=== PATIENT | male | born 1985 | race Caucasian/White ===

== ENCOUNTER 2020-04-25 17:34 | Inpatient (IN) ==
[2020-04-25 17:48] VITALS: BMI 28.8
[2020-04-25] MEDS ORDERED: TYLENOL 500 MG TAB EXTRA STRENGTH PO ONE ×2 (17:52→17:55)
--- NOTE | 2020-04-25 17:52 | DR.HEADACH ---
HPI Time Seen Time Seen by Provider: 04/25/20 17:51 Primary Care Physician Primary Care Physician: JOSR HPI Comment HPI Comment: 34 yo m w/ 4-5 day hx of diffuse garcia, myalgias, fatigue/ malaise, mild SOB and productive cough. No CP, numbness/ focal weakness, rash, neck pain. + exposure to multiple family members w/ covid. Complaint/Symptoms Chief Complaint:: PT COMLAINTS OF HAVING BODY ACHES, BAD HEADACHE, COUHGING UP BLOOD. MOTHER AND GRANDFATHER HAVE HAD COVID, MOM IN HOSPITAL AND GRANDFATHER WITH COVID. Self Treatment fo Chief Complaint: PT APPEARS SLUGGISH WITH WORDS AND THOUGHT PROCESS. PT STATES I HAVE BEEN TESTED BUT CAME BACK NEGATIVE AND ALL MY FAMILY HAS CAME BACK POSITIVE. Source History Provided: Patient Mode of Arrival Mode of Arrival: Ambulatory Timing Onset of Chief Complaint: 04/22/20 Location Headache Location: Generalized Quality Quality: Aching Severity Headache Severity: Mild; denies Worst Headache of Life Context Headache Onset Circumstances: denies Trauma History of: None Prior Work Up: None PMH PMH Past Medical History: Yes Past Medical History: Anxiety, Headaches and Hypothyroidism Past Medical History Comment: SUBTEX, 7 YEARS AGO I WAS ADDICTED TO [facility] Past Surgical History: Yes Surgical History: Tonsillectomy and Other Family History History of Family Medical Conditions: Yes Family Medical History: Diabetes Mellitus Social History Type of Tobacco Use: VAPE Does any household member use tobacco: Yes (VAPE) Alcohol Use: None Do you use any recreational Drugs:: No Lives With: Spouse Lives Where: Home Infectious screening In the last 2 months have you had wt loss of >10#?: NO Have you had fever, night sweats or hemotysis?: No Have you traveled outside the country in the last 6 months?: No Isolation: Droplet ROS Review of Systems Constitutional: Chills, Malaise and Fatigue; negative Fever Eyes: No Symptoms Reported ENTM: No Symptoms Reported Respiratoy: No Symptoms Reported Cardiovascular: No Symptoms Reported Gastrointestinal/Abdominal: No Symptoms Reported Genitourinary: No Symptoms Reported Neurological: Headache; negative Numbness, Paresthesia and Weakness Musculoskeletal: No Symptoms Reported Integumentary: No Symptoms Reported Hematologic/Lymphatic: No Symptoms Reported Endocrine: No Symptoms Reported Psychiatric: No Symptoms Reported All Other Systems: Reviewed and Negative PE Vital Signs Vitals: Temperature 103 F Pulse Rate 91 Respiratory Rate 20 Blood Pressure [Left Arm] 135/76 Blood Pressure 118/71 O2 Sat by Pulse Oximetry 93 General Limitations: No Limitations General Appearance: Alert and In No Apparent Distress Head Head Exam: Normal Inspection Eyes Eye exam: Normal Appearance Eyelids: Normal Inspection: Bilateral Pupils: Regular, Round: Bilateral Sclera/Conjunctival: Normal Inspection: Bilateral ENT ENT Exam: Normal Exam External Ear Exam: Normal External Inspection TM/Canal Exam: Bilateral: Normal Nose Exam: Normal Nose Exam Mouth Exam: Normal Inspection Teeth Exam: Normal Inspection Throat Exam: Normal Inspection Neck Neck Exam: Normal Inspection and Full ROM; negative Tenderness and Meningismus Chest Chest Inspection: Normal Inspection Respiratory Respiratory Exam: Normal Lung Sounds Bilat; negative Accessory Muscle Use and Respiratory Distress Respiratory Exam: Bilateral: Rhonchi Cardiovascular Cardiovascular Exam: Regular Rate Abdominal Exam Abdominal Exam: Normal Inspection, Normal Bowel Sounds and Soft Extremities Extremities Exam: Normal Inspection Back Back Exam: Normal Inspection Neurologic Neurological Exam: Alert, Oriented X3 and CN II-XII Intact; negative Motor Sensory Deficit Psychiatric Psychiatric Exam: Normal Affect and Normal Mood Skin Skin Exam: Warm, Dry, Intact and Normal Color MDM Differential Diagnosis Differential Diagnosis Comment: pna, sepsis, covid 19, bronchitis, uti COURSE Treatment Treatment: 34 yo m w/ covid like sx's. CXR w/ multifocal infiltrate. Hypoxemia per abg requiring supplemental o2. Inflammatory markers elevated. Azithro/ Rocephin/ Decadron given. d/w Dr Herrera whom agrees to admit. ROR Labs Reviewed Laboratory Results Reviewed?: Yes Result Diagrams: 04/25/20 18:10 04/25/20 18:10 Laboratory: WBC 3.4 X10^3/uL (3.6-10.0) L 04/25/20 18:10 RBC 4.04 X10^6/uL (4.7-6.0) L 04/25/20 18:10 Hgb 12.4 g/dL (13.5-18.0) L 04/25/20 18:10 Hct 36.2 % (42.0-54.0) L 04/25/20 18:10 MCV 89.7 fL (80.0-100.0) 04/25/20 18:10 MCH 30.8 pg (27.0-34.0) 04/25/20 18:10 MCHC 34.3 g/dL (33.0-35.0) 04/25/20 18:10 RDW 13.8 % (11.6-16.5) 04/25/20 18:10 Plt Count 194 X10^3/uL (150.0-450.0) 04/25/20 18:10 MPV 7.0 fL (7.4-11.0) L 04/25/20 18:10 Neut % (Auto) 79.6 % (42.0-75.0) H 04/25/20 18:10 Lymph % (Auto) 15.2 % (21.0-51.0) L 04/25/20 18:10 [place] % (Auto) 4.6 % (0.0-13.0) 04/25/20 18:10 Eos % (Auto) 0.2 % (0.9-2.9) L 04/25/20 18:10 Baso % (Auto) 0.4 % (0.2-1.0) 04/25/20 18:10 Neut # (Auto) 2.7 x10^3/uL (2.2-4.8) 04/25/20 18:10 Lymph # (Auto) 0.5 X10^3/uL (1.3-2.9) L 04/25/20 18:10 [place] # (Auto) 0.2 x10^3/uL (0.3-0.8) L 04/25/20 18:10 Eos # (Auto) 0.0 x10^3/uL (0.0-0.2) 04/25/20 18:10 Baso # (Auto) 0.0 X10^3/uL (0.0-0.1) 04/25/20 18:10 Absolute Nucleated RBC 0.4 /100WBC 04/25/20 18:10 Sample Site Lrad 04/25/20 18:36 ABG pH 7.420 (7.35-7.45) 04/25/20 18:36 ABG pCO2 49.0 mmHg (35.0-45.0) H 04/25/20 18:36 ABG pO2 47.0 mmHg (80.0-100.0) L* 04/25/20 18:36 ABG HCO3 31.8 mmol/L (22-26) H* 04/25/20 18:36 ABG O2 Saturation 83.0 % (90-100) L* 04/25/20 18:36 ABG Base Excess 6.2 mmol/L (-2.0-2.0) H 04/25/20 18:36 Guevara Test Pos 04/25/20 18:36 A-a Gradient 41.0 mmHg 04/25/20 18:36 FiO2 21.0 04/25/20 18:36 Blood Gas Comments Pt мария well elj cdn 04/25/20 18:36 Sodium 140 mmol/L (136-145) 04/25/20 18:10 Corrected Sodium 140 mmol/L (136-145) 04/25/20 18:10 Potassium 3.8 mmol/L (3.5-5.1) 04/25/20 18:10 Chloride 102 mmol/L (98-107) 04/25/20 18:10 Carbon Dioxide 31.9 mmol/L (21-32) 04/25/20 18:10 BUN 14 mg/dL (7-18) 04/25/20 18:10 Creatinine 1.25 mg/dL (0.70-1.30) 04/25/20 18:10 Est GFR (MDRD) Af Amer > 60 (>60) 04/25/20 18:10 Est GFR (MDRD) Non-Af > 60 (>60) 04/25/20 18:10 Glucose 111 mg/dL (65-99) H 04/25/20 18:10 Lactic Acid 1.3 mmol/L (0.4-2.0) 04/25/20 18:10 Calcium 8.7 mg/dL (8.5-10.1) 04/25/20 18:10 Corrected Calcium TNP 04/25/20 18:10 Ferritin 1893 ng/mL (26-388) H 04/25/20 18:10 Total Bilirubin 0.30 mg/dL (0.2-1.0) 04/25/20 18:10 AST 49 Units/L (15-37) H 04/25/20 18:10 ALT 48 Units/L (12-78) 04/25/20 18:10 Alkaline Phosphatase 79 Units/L (46-116) 04/25/20 18:10 Lactate Dehydrogenase 288 Units/L (85-227) H 04/25/20 18:10 C-Reactive Protein 107.50 mg/L (0-3.0) H 04/25/20 18:10 Total Protein 8.0 g/dL (6.4-8.2) 04/25/20 18:10 Albumin 3.5 g/dL (3.4-5.0) 04/25/20 18:10 Globulin 4.5 g/dL (2.5-4.5) 04/25/20 18:10 Albumin/Globulin Ratio 0.8 Ratio (1.1-2.1) L 04/25/20 18:10 EKG Rate: 90 [place]: Normal Rhythm: NSR Block: None ST: Normal Opioid Opioid Risk Tool Age ([place] box if 16-45): Yes History of Preadolescent Sexual Abuse: No Total: 1 Total Score Risk Category: Low Risk Copyright: Severo GALLO predicting aberrant behaviors Diagnosis Discharge Problem: Community acquired bacterial pneumonia, COVID-19, Acute hypoxemic respiratory failure due to COVID-19
[2020-04-25 18:17] LABS: BASOPHILS % (AUTO) 0.4 % (0.2-1.0); EOSINOPHILS % (AUTO) 0.2 % (0.9-2.9); HEMATOCRIT 36.2 % (42.0-54.0); HEMOGLOBIN 12.4 g/dL (13.5-18.0); LYMPHOCYTES # (AUTO) 0.5 X10^3/uL (1.3-2.9); LYMPHOCYTES % (AUTO) 15.2 % (21.0-51.0); MEAN CORPUSCULAR HEMOGLOBIN 30.8 pg (27.0-34.0); MEAN CORPUSCULAR HGB CONC 34.3 g/dL (33.0-35.0); MEAN CORPUSCULAR VOLUME 89.7 fL (80.0-100.0); MONOCYTES # (AUTO) 0.2 x10^3/uL (0.3-0.8); MONOCYTES % (AUTO) 4.6 % (0.0-13.0); NEUTROPHILS # (AUTO) 2.7 x10^3/uL (2.2-4.8); NEUTROPHILS % (AUTO) 79.6 % (42.0-75.0); PLATELET COUNT 194 X10^3/uL (150.0-450.0); RED BLOOD COUNT 4.04 X10^6/uL (4.7-6.0); RED CELL DISTRIBUTION WIDTH 13.8 % (11.6-16.5); WHITE BLOOD COUNT 3.4 X10^3/uL (3.6-10.0)
[2020-04-25 18:30] LABS: ALANINE AMINOTRANSFERASE 48 Units/L (12-78); ALBUMIN 3.5 g/dL (3.4-5.0); ALKALINE PHOSPHATASE 79 Units/L (46-116); ASPARTATE AMINO TRANSFERASE 49 Units/L (15-37); BLOOD UREA NITROGEN 14 mg/dL (7-18); CALCIUM 8.7 mg/dL (8.5-10.1); CARBON DIOXIDE 31.9 mmol/L (21-32); CHLORIDE 102 mmol/L (98-107); COR NA(FOR HYPERGLY) 140 mmol/L (136-145); CREATININE 1.25 mg/dL (0.70-1.30); LACTATE DEHYDROGENASE 288 Units/L (85-227); SODIUM 140 mmol/L (136-145); eGFR NON BLACK RACES > 60 (>60)
--- NOTE | 2020-04-25 18:30 | RAD ---
CHEST, 1 VIEWHISTORY: sob, coughStudy: Single view of the chest.Comparison:NoneFindings:The cardiomediastinal silhouette is normal. Bilateral interstitial prominence streaky left lung opacities. No focal consolidations, pleural effusions or pneumothorax. Osseous structures demonstrate no acute abnormality.IMPRESSION:1. Bilateral interstitial prominence and early alveolar infiltrates. Findings may represent atypical infection, including viral etiologies.Electronically signed by: EDWAR DOLL (Apr 25, 2020 18:30:41)
[2020-04-25 18:35] LABS: LACTIC ACID 1.3 mmol/L (0.4-2.0)
[2020-04-25 18:48] LABS: ABG BASE EXCESS 6.2 mmol/L (-2.0-2.0)
[2020-04-25 18:49] LABS: ABG HCO3 31.8 mmol/L (22-26)
[2020-04-25 18:50] LABS: ABG ALLEN TEST POS
[2020-04-25] MEDS ORDERED: ROCEPHIN VIAL 1 GRAM 1 G in NS 100 ML IV + SPIKE MINIBAG* 100 ML IV SCH (19:42)
[2020-04-25] MEDS ORDERED: DECADRON INJ IV SCH (20:00)
[2020-04-25] MEDS ORDERED: ROCEPHIN VIAL 1 GRAM ONE (21:38)
[2020-04-25] MEDS ORDERED: NS 50 ML IV + SPIKE MINIBAG* 50 ML IV ONE (21:38)
[2020-04-25] MEDS ORDERED: NS 250 ML IV 250 ML IV ONE (21:41)
[2020-04-25] MEDS ORDERED: TYLENOL 325 MG TAB PO PRN (23:20)
[2020-04-25] MEDS ORDERED: REMDESIVIR (INVESTIGATIONAL DRUG GS-5734) 200 MG in NS 250 ML IV 250 ML IV SCH (23:45)
[2020-04-26] MEDS: ZITHROMAX INJ 500 MG VIAL 500 MG in D5W 250 ML IV 250 ML IV SCH (01:24)
[2020-04-26] MEDS: KLONOPIN TAB 0.5 MG PO SCH ×3 (01:26→20:28)
[2020-04-26] MEDS: SOLU-Medrol 125 MG VIAL IVP SCH ×4 (01:27→21:17)
[2020-04-26] MEDS: SUBOXONE TAB SL SCH ×5 (01:28→21:17)
[2020-04-26] MEDS: ASCORBIC ACID INJ MULTI-DOSE VIAL 1,500 MG in NS 100 ML IV 100 ML IV SCH ×4 (04:33→20:53)
[2020-04-26 05:39] LABS: BASOPHILS % (AUTO) 0.2 % (0.2-1.0); EOSINOPHILS % (AUTO) 0.1 % (0.9-2.9); HEMATOCRIT 33.3 % (42.0-54.0); HEMOGLOBIN 11.7 g/dL (13.5-18.0); LYMPHOCYTES # (AUTO) 0.9 X10^3/uL (1.3-2.9); LYMPHOCYTES % (AUTO) 22.3 % (21.0-51.0); MEAN CORPUSCULAR HEMOGLOBIN 31.3 pg (27.0-34.0); MEAN CORPUSCULAR VOLUME 89.4 fL (80.0-100.0); MEAN PLATELET VOLUME 7.2 fL (7.4-11.0); MONOCYTES # (AUTO) 0.1 x10^3/uL (0.3-0.8); MONOCYTES % (AUTO) 3.3 % (0.0-13.0); NEUTROPHILS # (AUTO) 3.1 x10^3/uL (2.2-4.8); NEUTROPHILS % (AUTO) 74.1 % (42.0-75.0); PLATELET COUNT 201 X10^3/uL (150.0-450.0); RED BLOOD COUNT 3.72 X10^6/uL (4.7-6.0); RED CELL DISTRIBUTION WIDTH 13.5 % (11.6-16.5); WHITE BLOOD COUNT 4.2 X10^3/uL (3.6-10.0)
[2020-04-26 05:58] LABS: ALANINE AMINOTRANSFERASE 41 Units/L (12-78); ALBUMIN 3.1 g/dL (3.4-5.0); ALKALINE PHOSPHATASE 81 Units/L (46-116); ASPARTATE AMINO TRANSFERASE 43 Units/L (15-37); BLOOD UREA NITROGEN 13 mg/dL (7-18); CALCIUM 8.4 mg/dL (8.5-10.1); CARBON DIOXIDE 31.4 mmol/L (21-32); CHLORIDE 102 mmol/L (98-107); COR CA(FOR HYPOALB) 9.1 mg/dL (8.5-10.1); CREATININE 1.04 mg/dL (0.70-1.30); SODIUM 139 mmol/L (136-145); TOTAL PROTEIN 7.4 g/dL (6.4-8.2); eGFR NON BLACK RACES > 60 (>60)
[2020-04-26] MEDS: TRICOR TAB 160 MG PO SCH (08:26)
[2020-04-26] MEDS: ZINC SULFATE PO SCH ×2 (08:27→20:30)
[2020-04-26] MEDS: LOVENOX INJ 30 MG SYR SC SCH ×2 (08:27→20:30)
[2020-04-26] MEDS ORDERED: VITAMIN A PO SCH (09:00)
[2020-04-26] MEDS ORDERED: VITAMIN D (1.25MG) PO SCH (09:00)
[2020-04-26 12:56] LABS: ABG BASE EXCESS 5.1 mmol/L (-2.0-2.0)
[2020-04-26 12:57] LABS: ABG ALLEN TEST POS
[2020-04-26] MEDS: PLAQUENIL PO SCH ×2 (14:23→20:29)
[2020-04-26] MEDS ORDERED: MICRO K EXTEN CAP 10 MEQ PO PRN (19:17)
[2020-04-26] MEDS ORDERED: POTASSIUM CHL 60 MEQ/NS 0.45% 500 ML IV PRN (19:17)
[2020-04-26] MEDS ORDERED: K-RIDER 10 MEQ/NS 100 ML 10 MEQ/100 ML BAG IV PRN (19:17)
[2020-04-26] MEDS ORDERED: KLOR-CON PO PRN (19:17)
[2020-04-26] MEDS ORDERED: MAGNESIUM SULFATE 1 GRAM/100 mL PREMIX 1 GM/100 ML BAG IV PRN (19:17)
[2020-04-26] MEDS ORDERED: POTASSIUM CHL 40 MEQ/NS 0.45% 500 ML IV PRN (19:17)
[2020-04-26] MEDS ORDERED: POTASSIUM CHLORIDE LIQ 20 MEQ UDC PO PRN (19:17)
[2020-04-26] MEDS ORDERED: BENADRYL INJ 50 MG VIAL IVP PRN (19:20)
[2020-04-26] MEDS ORDERED: ROCEPHIN VIAL 1 GRAM 1 G in NS 100 ML IV + SPIKE MINIBAG* 100 ML IV SCH (20:00)
[2020-04-26] MEDS: K-DUR TAB 20 MEQ PO PRN (20:36)
[2020-04-27] MEDS: ZITHROMAX INJ 500 MG VIAL 500 MG in D5W 250 ML IV 250 ML IV SCH (00:20)
[2020-04-27] MEDS: REMDESIVIR (INVESTIGATIONAL DRUG GS-5734) 100 MG in NS 250 ML IV 250 ML IV SCH ×2 (01:15→22:05)
[2020-04-27] MEDS: ASCORBIC ACID INJ MULTI-DOSE VIAL 1,500 MG in NS 100 ML IV 100 ML IV SCH ×2 (03:30→09:11)
[2020-04-27 05:24] LABS: ABG ALLEN TEST POS; ABG BASE EXCESS 3.6 mmol/L (-2.0-2.0); ABG HCO3 29.1 mmol/L (22-26)
[2020-04-27] MEDS: SUBOXONE TAB SL SCH ×3 (05:35→21:14)
[2020-04-27] MEDS: SOLU-Medrol 125 MG VIAL IVP SCH ×3 (05:37→21:14)
[2020-04-27 05:56] LABS: BASOPHILS % (AUTO) 0.1 % (0.2-1.0); HEMATOCRIT 36.6 % (42.0-54.0); HEMOGLOBIN 12.6 g/dL (13.5-18.0); LYMPHOCYTES # (AUTO) 0.6 X10^3/uL (1.3-2.9); LYMPHOCYTES % (AUTO) 11.4 % (21.0-51.0); MEAN CORPUSCULAR HEMOGLOBIN 31.1 pg (27.0-34.0); MEAN CORPUSCULAR HGB CONC 34.4 g/dL (33.0-35.0); MEAN CORPUSCULAR VOLUME 90.4 fL (80.0-100.0); MEAN PLATELET VOLUME 7.2 fL (7.4-11.0); MONOCYTES # (AUTO) 0.1 x10^3/uL (0.3-0.8); NEUTROPHILS # (AUTO) 4.3 x10^3/uL (2.2-4.8); NEUTROPHILS % (AUTO) 85.5 % (42.0-75.0); PLATELET COUNT 270 X10^3/uL (150.0-450.0); RED BLOOD COUNT 4.05 X10^6/uL (4.7-6.0); RED CELL DISTRIBUTION WIDTH 13.4 % (11.6-16.5)
[2020-04-27 06:00] LABS: ALANINE AMINOTRANSFERASE 43 Units/L (12-78); ALBUMIN 3.2 g/dL (3.4-5.0); ALKALINE PHOSPHATASE 85 Units/L (46-116); ASPARTATE AMINO TRANSFERASE 41 Units/L (15-37); BLOOD UREA NITROGEN 16 mg/dL (7-18); CALCIUM 8.8 mg/dL (8.5-10.1); CARBON DIOXIDE 29.9 mmol/L (21-32); CHLORIDE 102 mmol/L (98-107); COR CA(FOR HYPOALB) 9.4 mg/dL (8.5-10.1); COR NA(FOR HYPERGLY) 141 mmol/L (136-145); SODIUM 140 mmol/L (136-145); TOTAL PROTEIN 8.1 g/dL (6.4-8.2); eGFR NON BLACK RACES > 60 (>60)
[2020-04-27] MEDS ORDERED: VITAMIN A PO SCH (09:00)
[2020-04-27] MEDS: KLONOPIN TAB 0.5 MG PO SCH ×2 (09:11→21:13)
[2020-04-27] MEDS: LOVENOX INJ 30 MG SYR SC SCH ×2 (09:12→21:13)
[2020-04-27] MEDS: PLAQUENIL PO SCH (09:12)
[2020-04-27] MEDS: VITAMIN D3 125 mcg (5,000 UNITS) PO SCH (09:13)
[2020-04-27] MEDS: TRICOR TAB 160 MG PO SCH (09:13)
[2020-04-27] MEDS: ZINC SULFATE PO SCH ×2 (09:14→21:14)
[2020-04-27] MEDS ORDERED: NS 250 ML IV 250 ML IV ONE (10:49)
[2020-04-27] MEDS: PULMICORT NEB TX 0.5 MG NEB SCH ×2 (11:22→21:35)
[2020-04-27] MEDS: MUCOMYST (RESPIRATORY USE ONLY) NEB SCH ×2 (11:22→21:35)
[2020-04-27] MEDS: DUONEB 0.5 MG/3 MG (3 mL) NEB SCH ×3 (11:22→21:35)
[2020-04-27] MEDS: LEVAQUIN PREMIX IV 750 MG 750 MG/150 ML BAG IV SCH (12:02)
[2020-04-27] MEDS ORDERED: TESSALON PERLES PO ONE (12:32)
[2020-04-27] MEDS: TESSALON PERLES PO SCH ×2 (13:39→21:15)
[2020-04-28] MEDS ORDERED: NS 100 ML IV 100 ML IV ONE (02:47)
[2020-04-28 05:19] LABS: ABG BASE EXCESS 6.7 mmol/L (-2.0-2.0); ABG HCO3 31.9 mmol/L (22-26)
[2020-04-28 05:20] LABS: ABG ALLEN TEST POS
--- NOTE | 2020-04-28 05:35 | RAD ---
HISTORYSOBSTUDYCHEST, 1 [id number]/26/2020FINDINGSThe trachea is midline. The cardiac silhouette is stable. Patchy bilateral interstitial and airspace opacities, slightly progressed since prior exam. Mild left basilar atelectasis versus infiltrates. No pneumothorax.. The bony thorax is unremarkable.IMPRESSIONMore pronounced patchy bilateral interstitial/airspace opacities.Electronically signed by: Lana Luis (Apr 28, 2020 05:35:42)
[2020-04-28 05:42] LABS: BASOPHILS % (AUTO) 0.1 % (0.2-1.0); HEMATOCRIT 33.1 % (42.0-54.0); HEMOGLOBIN 11.5 g/dL (13.5-18.0); LYMPHOCYTES # (AUTO) 0.8 X10^3/uL (1.3-2.9); LYMPHOCYTES % (AUTO) 8.1 % (21.0-51.0); MEAN CORPUSCULAR HGB CONC 34.8 g/dL (33.0-35.0); MEAN CORPUSCULAR VOLUME 89.1 fL (80.0-100.0); MEAN PLATELET VOLUME 6.6 fL (7.4-11.0); MONOCYTES # (AUTO) 0.3 x10^3/uL (0.3-0.8); MONOCYTES % (AUTO) 3.2 % (0.0-13.0); NEUTROPHILS # (AUTO) 8.4 x10^3/uL (2.2-4.8); NEUTROPHILS % (AUTO) 88.6 % (42.0-75.0); PLATELET COUNT 323 X10^3/uL (150.0-450.0); RED BLOOD COUNT 3.72 X10^6/uL (4.7-6.0); RED CELL DISTRIBUTION WIDTH 13.8 % (11.6-16.5); WHITE BLOOD COUNT 9.5 X10^3/uL (3.6-10.0)
[2020-04-28 05:53] LABS: ALANINE AMINOTRANSFERASE 32 Units/L (12-78); ALBUMIN 2.9 g/dL (3.4-5.0); ALKALINE PHOSPHATASE 73 Units/L (46-116); ASPARTATE AMINO TRANSFERASE 27 Units/L (15-37); BLOOD UREA NITROGEN 19 mg/dL (7-18); CALCIUM 8.8 mg/dL (8.5-10.1); CHLORIDE 102 mmol/L (98-107); COR CA(FOR HYPOALB) 9.7 mg/dL (8.5-10.1); COR NA(FOR HYPERGLY) 143 mmol/L (136-145); CREATININE 1.27 mg/dL (0.70-1.30); SODIUM 141 mmol/L (136-145); TOTAL PROTEIN 7.4 g/dL (6.4-8.2); eGFR NON BLACK RACES > 60 (>60)
[2020-04-28] MEDS: SOLU-Medrol 125 MG VIAL IVP SCH ×3 (05:58→21:43)
[2020-04-28] MEDS: SUBOXONE TAB SL SCH ×3 (06:20→21:43)
[2020-04-28] MEDS: TESSALON PERLES PO SCH ×3 (06:20→21:43)
--- NOTE | 2020-04-28 08:40 | PCM.PROG ---
Progress Note - Progress Note for Day of Date of Exam: 04/27/20 - Subjective Subjective: WAS ADMITTED ON 04/25 FOR TREATMENT OF PNEUMONIA DUE TO COVID-19, HYPOXIA, AND RESPIRATORY FAILURE. HIS PO2 ON ADMISSION WAS 47. HE HAS A HISTORY OF ANXIETY AND OPIOD DEPENDENCE. HIS SUBOXONE WAS RESUMED. HE HAS BEEN OXYGEN DEPENDENT TO MAINTAIN OXYGEN SATURATIONS. HE IS CURRENTLY ON OXYGEN VIA NASAL CANNULA AT 3L/MIN. HE CONTINUES WITH COMPLAINTS OF SHORTNESS OF BREATH, COUGH, AND WEAKNESS THIS MORNING. COUGH IS NON-PRODUCTIVE. HE IS NOTED WITH SCATTERED WHEEZING TO AUSCULTATION. HIS VITALS THIS MORNING ARE: 98.4-68-16-87%NC-97/55. LABS WERE OBTAINED. ABNORMAL LAB VALUES INCLUDE THE FOLLOWING: RBC 3.72, HGB 11.5, HCT 33.1, BUN 19, GLUCOSE 180, FERRITIN 2114, CRP 34.30, ALBUMIN 2.9. ABG REVEALED: PH 7.440, PC02 47, P02 60, HC03 31.9, 02 SAT 92, BASE EXCESS 6.7, FI02 32. HE IS CURRENTLY RECEIVING ROCEPHIN 1G IV DAILY, AZITHROMYCIN 500MG IV DAILY, REMDESIVIR 100MG IV DAILY, SOLU-MEDROL 80MG IV Q8H, LOVENOX 30MG SC BID, TRICOR 160MG PO DAILY, ZINC 220MG PO DAILY, KLONOPIN 0.5MG PO BID, SUBOXONE SL TID, AND THE POTASSIUM AND MAGNESIUM PROTOCOLS. TODAY, WE WILL DISCONTINUE THE ROCEPHIN AND AZITHROMYCIN. WE WILL START LEVAQUIN 750MG IV DAILY, DUONEBS QID, PULMICORT NEBS BID, MUCOMYST IN NEBS BID, AND TESSALON PERLES 200MG PO TID. OTHERWISE, WE PLAN TO FOLLOW UP WITH AM LABS, CHEST XRAY, ABG, AND CONTINUE TO MONITOR. - Past Medical Family Social History Past Med/Fam/Surg Hx: No changes since H&P Allergies: Allergies amoxicillin Adverse Reaction (Verified 04/25/20 17:48) clavulanic acid [From Augmentin] Adverse Reaction (Verified 04/25/20 17:48) - Review of Systems ROS: No change since H&P - Vital Signs and I&O's Vital Signs: Temperature 98.3 F Pulse Rate [Left Brachial] 79 Pulse Rate 88 Respiratory Rate 20 Blood Pressure [Left Arm] 115/74 Blood Pressure 119/58 O2 Sat by Pulse Oximetry 83 Intake and Output: Intake & Output 04/25/20 04/26/20 04/27/20 04/28/20 11:59 11:59 11:59 11:59 Intake Total 900 / 900 3315 / 3315 2820 / 2820 Output Total 450 / 450 Balance 450 / 450 3315 / 3315 2820 / 2820 - Physical Exam Oriented: Normal Eyes: Normal Ear: Normal Nose: Normal Throat: Normal Respiratory: Generalized, Diminished, Wheezes Cardiovascular: Normal : Normal Auscultation: Bowel Sounds: Normal Palpation: Normal Tenderness: Normal Skin: Normal Musculoskeletal: Normal Psychiatric: Normal Mood Description: Calm Affect: Normal Speech Pattern: Clear, Appropriate - Laboratory and Diagnostics Result Diagrams: 04/28/20 04:23 04/28/20 04:23 Labs: Laboratory WBC 9.5 X10^3/uL (3.6-10.0) 04/28/20 04:23 RBC 3.72 X10^6/uL (4.7-6.0) L 04/28/20 04:23 Hgb 11.5 g/dL (13.5-18.0) L 04/28/20 04:23 Hct 33.1 % (42.0-54.0) L 04/28/20 04:23 MCV 89.1 fL (80.0-100.0) 04/28/20 04:23 MCH 31.0 pg (27.0-34.0) 04/28/20 04:23 MCHC 34.8 g/dL (33.0-35.0) 04/28/20 04:23 RDW 13.8 % (11.6-16.5) 04/28/20 04:23 Plt Count 323 X10^3/uL (150.0-450.0) 04/28/20 04:23 MPV 6.6 fL (7.4-11.0) L 04/28/20 04:23 Neut % (Auto) 88.6 % (42.0-75.0) H 04/28/20 04:23 Lymph % (Auto) 8.1 % (21.0-51.0) L 04/28/20 04:23 [place] % (Auto) 3.2 % (0.0-13.0) 04/28/20 04:23 Eos % (Auto) 0.0 % (0.9-2.9) L 04/28/20 04:23 Baso % (Auto) 0.1 % (0.2-1.0) L 04/28/20 04:23 Neut # (Auto) 8.4 x10^3/uL (2.2-4.8) H 04/28/20 04:23 Lymph # (Auto) 0.8 X10^3/uL (1.3-2.9) L 04/28/20 04:23 [place] # (Auto) 0.3 x10^3/uL (0.3-0.8) 04/28/20 04:23 Eos # (Auto) 0.0 x10^3/uL (0.0-0.2) 04/28/20 04:23 Baso # (Auto) 0.0 X10^3/uL (0.0-0.1) 04/28/20 04:23 Absolute Nucleated RBC 0.0 /100WBC 04/28/20 04:23 Sample Site Rr 04/28/20 05:00 ABG pH 7.440 (7.35-7.45) 04/28/20 05:00 ABG pCO2 47.0 mmHg (35.0-45.0) H 04/28/20 05:00 ABG pO2 60.0 mmHg (80.0-100.0) L 04/28/20 05:00 ABG HCO3 31.9 mmol/L (22-26) H* 04/28/20 05:00 ABG O2 Saturation 92.0 % (90-100) 04/28/20 05:00 ABG Base Excess 6.7 mmol/L (-2.0-2.0) H 04/28/20 05:00 Guevara Test Pos 04/28/20 05:00 A-a Gradient 109.0 mmHg 04/28/20 05:00 FiO2 32.0 04/28/20 05:00 Blood Gas Comments Luz well sw 04/28/20 05:00 Sodium 141 mmol/L (136-145) 04/28/20 04:23 Corrected Sodium 143 mmol/L (136-145) 04/28/20 04:23 Potassium 3.8 mmol/L (3.5-5.1) 04/28/20 04:23 Chloride 102 mmol/L (98-107) 04/28/20 04:23 Carbon Dioxide 29.0 mmol/L (21-32) 04/28/20 04:23 BUN 19 mg/dL (7-18) H 04/28/20 04:23 Creatinine 1.27 mg/dL (0.70-1.30) 04/28/20 04:23 Est GFR (MDRD) Af Amer > 60 (>60) 04/28/20 04:23 Est GFR (MDRD) Non-Af > 60 (>60) 04/28/20 04:23 Glucose 180 mg/dL (65-99) H 04/28/20 04:23 Lactic Acid 1.3 mmol/L (0.4-2.0) 04/25/20 18:10 Calcium 8.8 mg/dL (8.5-10.1) 04/28/20 04:23 Corrected Calcium 9.7 mg/dL (8.5-10.1) 04/28/20 04:23 Magnesium 2.4 mg/dL (1.7-2.9) 04/26/20 04:30 Ferritin 2114 ng/mL (26-388) H 04/28/20 04:23 Total Bilirubin 0.20 mg/dL (0.2-1.0) 04/28/20 04:23 AST 27 Units/L (15-37) 04/28/20 04:23 ALT 32 Units/L (12-78) 04/28/20 04:23 Alkaline Phosphatase 73 Units/L (46-116) 04/28/20 04:23 Lactate Dehydrogenase 288 Units/L (85-227) H 04/25/20 18:10 C-Reactive Protein 34.30 mg/L (0-3.0) H 04/28/20 04:23 Total Protein 7.4 g/dL (6.4-8.2) 04/28/20 04:23 Albumin 2.9 g/dL (3.4-5.0) L 04/28/20 04:23 Globulin 4.5 g/dL (2.5-4.5) 04/28/20 04:23 Albumin/Globulin Ratio 0.6 Ratio (1.1-2.1) L 04/28/20 04:23 SARS-CoV-2 (PCR) Positive (NEGATIVE) A 04/25/20 20:39 Blood Type A POSITIVE 04/26/20 12:10 - Plan (1) Pneumonia due to COVID-19 virus Status: Acute Plan: LEVAQUIN 750MG IV DAILY, DUONEBS QID, PULMICORT NEBS BID, MUCOMYST IN NEBS BID, AND TESSALON PERLES 200MG PO TID, REMDESIVIR 100MG IV DAILY, SOLU-MEDROL 80MG IV Q8H, LOVENOX 30MG SC BID, TRICOR 160MG PO DAILY, ZINC 220MG PO DAILY, KLONOPIN 0.5MG PO BID, SUBOXONE SL TID, AND THE POTASSIUM AND MAGNESIUM PROTOCOLS. SUPPLEMENTAL OXYGEN (2) Acute hypoxemic respiratory failure due to COVID-19 Status: Acute
[2020-04-28] MEDS: DUONEB 0.5 MG/3 MG (3 mL) NEB SCH ×4 (09:05→20:25)
[2020-04-28] MEDS: PULMICORT NEB TX 0.5 MG NEB SCH ×2 (09:05→20:25)
[2020-04-28] MEDS: MUCOMYST (RESPIRATORY USE ONLY) NEB SCH ×2 (09:05→20:25)
[2020-04-28] MEDS: LOVENOX INJ 30 MG SYR SC SCH ×2 (09:07→21:42)
[2020-04-28] MEDS: KLONOPIN TAB 0.5 MG PO SCH ×2 (09:07→21:42)
[2020-04-28] MEDS: LEVAQUIN PREMIX IV 750 MG 750 MG/150 ML BAG IV SCH (09:07)
[2020-04-28] MEDS: VITAMIN D3 125 mcg (5,000 UNITS) PO SCH (09:08)
[2020-04-28] MEDS: TRICOR TAB 160 MG PO SCH (09:08)
[2020-04-28] MEDS: ZINC SULFATE PO SCH ×2 (09:09→21:42)
[2020-04-28] MEDS: K-DUR TAB 20 MEQ PO PRN (09:09)
--- NOTE | 2020-04-28 11:03 | PCM.PROG ---
Progress Note - Progress Note for Day of Date of Exam: 04/28/20 - Subjective Subjective: IS BEING TREATED FOR PNEUMONIA DUE TO COVID-19, HYPOXIA, AND RESPIRATORY FAILURE. HE HAS BEEN OXYGEN DEPENDENT TO MAINTAIN OXYGEN SATURATIONS. SATURATIONS CONTINUE TO REMAIN IN THE 80s AND LOW 90s ON NASAL CANNULA. HE IS CURRENTLY ON OXYGEN VIA NASAL CANNULA AT 2L/MIN. HE CONTINUES WITH COMPLAINTS OF SHORTNESS OF BREATH, COUGH, AND WEAKNESS THIS MORNING. COUGH IS NON-PRODUCTIVE. HE DENIES SIGNIFICANT IMPROVEMENT IN SYMPTOMS SINCE ONE DAY PRIOR. ON EXAMINATION, HE IS NOTED WITH SCATTERED WHEEZING TO AUSCULTATION. HIS VITALS THIS MORNING ARE: 98.3-79-20-83%NC-115/74. LABS WERE OBTAINED. ABNORMAL LAB VALUES INCLUDE THE FOLLOWING: RBC 3.72, HGB 11.5, HCT 33.1, BUN 19, GLUCOSE 180, FERRITIN 2114, CRP 34.30, ALBUMIN 2.9. ABG REVEALED: PH 7.440, PC02 47, P02 60, HC03 31.9, 02 SAT 92, FI02 32. HE IS CURRENTLY RECEIVING REMDESIVIR 100MG IV DAILY, SOLU-MEDROL 80MG IV Q8H, LEVAQUIN 750MG IV DAILY, DUONEBS QID, PULMICORT NEBS BID, MUCOMYST IN NEBS BID, TESSALON PERLES 200MG PO TID, LOVENOX 30MG SC BID, TRICOR 160MG PO DAILY, ZINC 220MG PO DAILY, KLONOPIN 0.5MG PO BID, SUBOXONE SL TID, AND THE POTASSIUM AND MAGNESIUM PROTOCOLS. HE HAS RECEIVED ONE UNIT OF CONVALESCENT PLASMA AND WILL RECEIVE ANOTHER WHEN IT IS AVAILABLE. WE WILL CONTINUE WITH CURRENT PLAN OF CARE TODAY. OTHERWISE, WE PLAN TO FOLLOW UP WITH AM LABS, CHEST XRAY, ABG, AND CONTINUE TO MONITOR. - Past Medical Family Social History Past Med/Fam/Surg Hx: No changes since H&P Allergies: Allergies amoxicillin Adverse Reaction (Verified 04/25/20 17:48) clavulanic acid [From Augmentin] Adverse Reaction (Verified 04/25/20 17:48) - Review of Systems ROS: No change since H&P - Vital Signs and I&O's Vital Signs: Temperature 98.3 F Pulse Rate [Left Brachial] 79 Pulse Rate 88 Respiratory Rate 20 Blood Pressure [Left Arm] 115/74 Blood Pressure 119/58 O2 Sat by Pulse Oximetry 83 Intake and Output: Intake & Output 04/25/20 04/26/20 04/27/20 04/28/20 11:59 11:59 11:59 11:59 Intake Total 900 / 900 3315 / 3315 2820 / 2820 Output Total 450 / 450 Balance 450 / 450 3315 / 3315 2820 / 2820 - Physical Exam Oriented: Normal Eyes: Normal Ear: Normal Nose: Normal Throat: Normal Respiratory: Generalized, Diminished, Wheezes Cardiovascular: Normal : Normal Auscultation: Bowel Sounds: Normal Palpation: Normal Tenderness: Normal Skin: Normal Musculoskeletal: Normal Psychiatric: Normal Mood Description: Calm Affect: Normal Speech Pattern: Clear, Appropriate - Laboratory and Diagnostics Result Diagrams: 04/28/20 04:23 04/28/20 04:23 Labs: Laboratory WBC 9.5 X10^3/uL (3.6-10.0) 04/28/20 04:23 RBC 3.72 X10^6/uL (4.7-6.0) L 04/28/20 04:23 Hgb 11.5 g/dL (13.5-18.0) L 04/28/20 04:23 Hct 33.1 % (42.0-54.0) L 04/28/20 04:23 MCV 89.1 fL (80.0-100.0) 04/28/20 04:23 MCH 31.0 pg (27.0-34.0) 04/28/20 04:23 MCHC 34.8 g/dL (33.0-35.0) 04/28/20 04:23 RDW 13.8 % (11.6-16.5) 04/28/20 04:23 Plt Count 323 X10^3/uL (150.0-450.0) 04/28/20 04:23 MPV 6.6 fL (7.4-11.0) L 04/28/20 04:23 Neut % (Auto) 88.6 % (42.0-75.0) H 04/28/20 04:23 Lymph % (Auto) 8.1 % (21.0-51.0) L 04/28/20 04:23 [place] % (Auto) 3.2 % (0.0-13.0) 04/28/20 04:23 Eos % (Auto) 0.0 % (0.9-2.9) L 04/28/20 04:23 Baso % (Auto) 0.1 % (0.2-1.0) L 04/28/20 04:23 Neut # (Auto) 8.4 x10^3/uL (2.2-4.8) H 04/28/20 04:23 Lymph # (Auto) 0.8 X10^3/uL (1.3-2.9) L 04/28/20 04:23 [place] # (Auto) 0.3 x10^3/uL (0.3-0.8) 04/28/20 04:23 Eos # (Auto) 0.0 x10^3/uL (0.0-0.2) 04/28/20 04:23 Baso # (Auto) 0.0 X10^3/uL (0.0-0.1) 04/28/20 04:23 Absolute Nucleated RBC 0.0 /100WBC 04/28/20 04:23 Sample Site Rr 04/28/20 05:00 ABG pH 7.440 (7.35-7.45) 04/28/20 05:00 ABG pCO2 47.0 mmHg (35.0-45.0) H 04/28/20 05:00 ABG pO2 60.0 mmHg (80.0-100.0) L 04/28/20 05:00 ABG HCO3 31.9 mmol/L (22-26) H* 04/28/20 05:00 ABG O2 Saturation 92.0 % (90-100) 04/28/20 05:00 ABG Base Excess 6.7 mmol/L (-2.0-2.0) H 04/28/20 05:00 Guevara Test Pos 04/28/20 05:00 A-a Gradient 109.0 mmHg 04/28/20 05:00 FiO2 32.0 04/28/20 05:00 Blood Gas Comments Luz well 04/28/20 05:00 Sodium 141 mmol/L (136-145) 04/28/20 04:23 Corrected Sodium 143 mmol/L (136-145) 04/28/20 04:23 Potassium 3.8 mmol/L (3.5-5.1) 04/28/20 04:23 Chloride 102 mmol/L (98-107) 04/28/20 04:23 Carbon Dioxide 29.0 mmol/L (21-32) 04/28/20 04:23 BUN 19 mg/dL (7-18) H 04/28/20 04:23 Creatinine 1.27 mg/dL (0.70-1.30) 04/28/20 04:23 Est GFR (MDRD) Af Amer > 60 (>60) 04/28/20 04:23 Est GFR (MDRD) Non-Af > 60 (>60) 04/28/20 04:23 Glucose 180 mg/dL (65-99) H 04/28/20 04:23 Lactic Acid 1.3 mmol/L (0.4-2.0) 04/25/20 18:10 Calcium 8.8 mg/dL (8.5-10.1) 04/28/20 04:23 Corrected Calcium 9.7 mg/dL (8.5-10.1) 04/28/20 04:23 Magnesium 2.4 mg/dL (1.7-2.9) 04/26/20 04:30 Ferritin 2114 ng/mL (26-388) H 04/28/20 04:23 Total Bilirubin 0.20 mg/dL (0.2-1.0) 04/28/20 04:23 AST 27 Units/L (15-37) 04/28/20 04:23 ALT 32 Units/L (12-78) 04/28/20 04:23 Alkaline Phosphatase 73 Units/L (46-116) 04/28/20 04:23 Lactate Dehydrogenase 288 Units/L (85-227) H 04/25/20 18:10 C-Reactive Protein 34.30 mg/L (0-3.0) H 04/28/20 04:23 Total Protein 7.4 g/dL (6.4-8.2) 04/28/20 04:23 Albumin 2.9 g/dL (3.4-5.0) L 04/28/20 04:23 Globulin 4.5 g/dL (2.5-4.5) 04/28/20 04:23 Albumin/Globulin Ratio 0.6 Ratio (1.1-2.1) L 04/28/20 04:23 SARS-CoV-2 (PCR) Positive (NEGATIVE) A 04/25/20 20:39 Blood Type A POSITIVE 04/26/20 12:10 - Plan (1) Pneumonia due to COVID-19 virus Status: Acute Plan: LEVAQUIN 750MG IV DAILY, DUONEBS QID, PULMICORT NEBS BID, MUCOMYST IN NEBS BID, AND TESSALON PERLES 200MG PO TID, REMDESIVIR 100MG IV DAILY, SOLU-MEDROL 80MG IV Q8H, LOVENOX 30MG SC BID, TRICOR 160MG PO DAILY, ZINC 220MG PO DAILY, KLONOPIN 0.5MG PO BID, SUBOXONE SL TID, AND THE POTASSIUM AND MAGNESIUM PROTOCOLS. SUPPLEMENTAL OXYGEN (2) Acute hypoxemic respiratory failure due to COVID-19 Status: Acute
[2020-04-28] MEDS: REMDESIVIR (INVESTIGATIONAL DRUG GS-5734) 100 MG in NS 250 ML IV 250 ML IV SCH (22:03)
--- NOTE | 2020-04-29 05:25 | RAD ---
HISTORYSOBSTUDYCHEST, 1 [id number]/2020FINDINGSThe trachea is midline. The cardiac silhouette is within normal limits and stable. Bilateral patchy pulmonary opacities/infiltrates, unchanged compared to prior exam.. The bony thorax is unremarkable.IMPRESSIONNo significant interval change.Electronically signed by: Lana Luis (Apr 29, 2020 05:25:07)
[2020-04-29] MEDS: SOLU-Medrol 125 MG VIAL IVP SCH ×3 (05:45→21:10)
[2020-04-29] MEDS: SUBOXONE TAB SL SCH ×3 (05:46→21:10)
[2020-04-29] MEDS: TESSALON PERLES PO SCH ×3 (05:46→21:10)
[2020-04-29 05:54] LABS: ABG BASE EXCESS 10.4 mmol/L (-2.0-2.0)
[2020-04-29 05:55] LABS: ABG ALLEN TEST POS; ABG HCO3 35.1 mmol/L (22-26); FRACTIONATED INSPIRED OXYGEN 32
[2020-04-29 06:02] LABS: BASOPHILS % (AUTO) 0.1 % (0.2-1.0); HEMATOCRIT 34.5 % (42.0-54.0); HEMOGLOBIN 11.9 g/dL (13.5-18.0); LYMPHOCYTES # (AUTO) 0.4 X10^3/uL (1.3-2.9); LYMPHOCYTES % (AUTO) 6.4 % (21.0-51.0); MEAN CORPUSCULAR HEMOGLOBIN 30.9 pg (27.0-34.0); MEAN CORPUSCULAR HGB CONC 34.4 g/dL (33.0-35.0); MEAN CORPUSCULAR VOLUME 89.8 fL (80.0-100.0); MEAN PLATELET VOLUME 6.8 fL (7.4-11.0); MONOCYTES # (AUTO) 0.5 x10^3/uL (0.3-0.8); MONOCYTES % (AUTO) 6.5 % (0.0-13.0); PLATELET COUNT 352 X10^3/uL (150.0-450.0); RED BLOOD COUNT 3.85 X10^6/uL (4.7-6.0); RED CELL DISTRIBUTION WIDTH 13.7 % (11.6-16.5); WHITE BLOOD COUNT 6.9 X10^3/uL (3.6-10.0)
[2020-04-29 06:18] LABS: ALANINE AMINOTRANSFERASE 30 Units/L (12-78); ALBUMIN 2.8 g/dL (3.4-5.0); ALKALINE PHOSPHATASE 68 Units/L (46-116); ASPARTATE AMINO TRANSFERASE 22 Units/L (15-37); BLOOD UREA NITROGEN 23 mg/dL (7-18); CALCIUM 9.4 mg/dL (8.5-10.1); CHLORIDE 104 mmol/L (98-107); COR CA(FOR HYPOALB) 10.4 mg/dL (8.5-10.1); COR NA(FOR HYPERGLY) 144 mmol/L (136-145); CREATININE 1.14 mg/dL (0.70-1.30); SODIUM 142 mmol/L (136-145); TOTAL PROTEIN 7.2 g/dL (6.4-8.2); eGFR NON BLACK RACES > 60 (>60)
[2020-04-29] MEDS: LOVENOX INJ 30 MG SYR SC SCH ×2 (08:54→21:10)
[2020-04-29] MEDS: LEVAQUIN PREMIX IV 750 MG 750 MG/150 ML BAG IV SCH (08:54)
[2020-04-29] MEDS: ZINC SULFATE PO SCH ×2 (08:55→21:10)
[2020-04-29] MEDS: KLONOPIN TAB 0.5 MG PO SCH ×2 (08:55→21:10)
[2020-04-29] MEDS: VITAMIN D3 125 mcg (5,000 UNITS) PO SCH (08:55)
[2020-04-29] MEDS: TRICOR TAB 160 MG PO SCH (08:56)
[2020-04-29] MEDS: PULMICORT NEB TX 0.5 MG NEB SCH ×2 (09:30→20:35)
[2020-04-29] MEDS: MUCOMYST (RESPIRATORY USE ONLY) NEB SCH ×2 (09:30→20:35)
[2020-04-29] MEDS: DUONEB 0.5 MG/3 MG (3 mL) NEB SCH ×4 (09:30→20:35)
--- NOTE | 2020-04-29 13:35 | PCM.PROG ---
Progress Note - Progress Note for Day of Date of Exam: 04/29/20 - Subjective Subjective: IS BEING TREATED FOR PNEUMONIA DUE TO COVID-19, HYPOXIA, AND RESPIRATORY FAILURE. HE CONTINUES TO BE DEPENDENT TO MAINTAIN OXYGEN SATURATIONS. SATURATIONS CONTINUE TO REMAIN IN THE LOW 90s ON NASAL CANNULA. HE IS CURRENTLY ON OXYGEN VIA NASAL CANNULA AT 3L/MIN. HE CONTINUES WITH COMPLAINTS OF SHORTNESS OF BREATH, COUGH, AND WEAKNESS THIS MORNING. COUGH IS NON- PRODUCTIVE. HE DENIES SIGNIFICANT IMPROVEMENT IN SYMPTOMS SINCE ONE DAY PRIOR. ON EXAMINATION, HE IS NOTED WITH SCATTERED WHEEZING TO AUSCULTATION. HIS VITALS THIS MORNING ARE: 97.6-60-18-91%NC-123/73. LABS WERE OBTAINED. ABNORMAL LAB VALUES INCLUDE THE FOLLOWING: RBC 3.85, HGB 11.9, HCT 34.5, BUN 23, GLUCOSE 204, FERRITIN 2046, CRP 21.30, ALBUMIN 2.8. ABG REVEALED: PH 7.490, PC02 46, P02 60, HC03 35.1, 02 ST 93, FI02 32. HE IS CURRENTLY RECEIVING REMDESIVIR 100MG IV DAILY, SOLU-MEDROL 80MG IV Q8H, LEVAQUIN 750MG IV DAILY, DUONEBS QID, PULMICORT NEBS BID, MUCOMYST IN NEBS BID, TESSALON PERLES 200MG PO TID, LOVENOX 30MG SC BID, TRICOR 160MG PO DAILY, ZINC 220MG PO DAILY, KLONOPIN 0.5MG PO BID, SUBOXONE SL TID, AND THE POTASSIUM AND MAGNESIUM PROTOCOLS. HE HAS RECEIVED ONE UNIT OF CONVALESCENT PLASMA AND WILL RECEIVE ANOTHER WHEN IT IS AVAILABLE. OTHERWISE WILL CONTINUE WITH CURRENT PLAN OF CARE TODAY. OTHERWISE, WE PLAN TO FOLLOW UP WITH AM LABS, CHEST XRAY, ABG, AND CONTINUE TO MONITOR. - Past Medical Family Social History Past Med/Fam/Surg Hx: No changes since H&P Allergies: Allergies amoxicillin Adverse Reaction (Verified 04/25/20 17:48) clavulanic acid [From Augmentin] Adverse Reaction (Verified 04/25/20 17:48) - Review of Systems ROS: No change since H&P - Vital Signs and I&O's Vital Signs: Temperature 97.6 F Pulse Rate [Left Brachial] 76 Pulse Rate 83 Respiratory Rate 20 Blood Pressure [Left Arm] 124/73 Blood Pressure 119/58 O2 Sat by Pulse Oximetry 92 Intake and Output: Intake & Output 04/27/20 04/28/20 04/29/20 04/30/20 11:59 11:59 11:59 11:59 Intake Total 3315 / 3315 2820 / 2820 2240 / 2240 Balance 3315 / 3315 2820 / 2820 2240 / 2240 - Physical Exam Oriented: Normal Eyes: Normal Ear: Normal Nose: Normal Throat: Normal Respiratory: Generalized, Diminished, Wheezes Cardiovascular: Normal : Normal Auscultation: Bowel Sounds: Normal Palpation: Normal Tenderness: Normal Skin: Normal Musculoskeletal: Normal Psychiatric: Normal Mood Description: Calm Affect: Normal Speech Pattern: Clear, Appropriate - Laboratory and Diagnostics Result Diagrams: 04/29/20 04:40 04/29/20 04:40 Labs: Laboratory WBC 6.9 X10^3/uL (3.6-10.0) 04/29/20 04:40 RBC 3.85 X10^6/uL (4.7-6.0) L 04/29/20 04:40 Hgb 11.9 g/dL (13.5-18.0) L 04/29/20 04:40 Hct 34.5 % (42.0-54.0) L 04/29/20 04:40 MCV 89.8 fL (80.0-100.0) 04/29/20 04:40 MCH 30.9 pg (27.0-34.0) 04/29/20 04:40 MCHC 34.4 g/dL (33.0-35.0) 04/29/20 04:40 RDW 13.7 % (11.6-16.5) 04/29/20 04:40 Plt Count 352 X10^3/uL (150.0-450.0) 04/29/20 04:40 MPV 6.8 fL (7.4-11.0) L 04/29/20 04:40 Neut % (Auto) 87.0 % (42.0-75.0) H 04/29/20 04:40 Lymph % (Auto) 6.4 % (21.0-51.0) L 04/29/20 04:40 [place] % (Auto) 6.5 % (0.0-13.0) 04/29/20 04:40 Eos % (Auto) 0.0 % (0.9-2.9) L 04/29/20 04:40 Baso % (Auto) 0.1 % (0.2-1.0) L 04/29/20 04:40 Neut # (Auto) 6.0 x10^3/uL (2.2-4.8) H 04/29/20 04:40 Lymph # (Auto) 0.4 X10^3/uL (1.3-2.9) L 04/29/20 04:40 [place] # (Auto) 0.5 x10^3/uL (0.3-0.8) 04/29/20 04:40 Eos # (Auto) 0.0 x10^3/uL (0.0-0.2) 04/29/20 04:40 Baso # (Auto) 0.0 X10^3/uL (0.0-0.1) 04/29/20 04:40 Absolute Nucleated RBC 0.1 /100WBC 04/29/20 04:40 Sample Site Rr 04/29/20 05:40 ABG pH 7.490 (7.35-7.45) H 04/29/20 05:40 ABG pCO2 46.0 mmHg (35.0-45.0) H 04/29/20 05:40 ABG pO2 60.0 mmHg (80.0-100.0) L 04/29/20 05:40 ABG HCO3 35.1 mmol/L (22-26) H* 04/29/20 05:40 ABG O2 Saturation 93.0 % (90-100) 04/29/20 05:40 ABG Base Excess 10.4 mmol/L (-2.0-2.0) H 04/29/20 05:40 Guevara Test Pos 04/29/20 05:40 A-a Gradient 111.0 mmHg 04/29/20 05:40 FiO2 32 04/29/20 05:40 Blood Gas Comments Pt мария [facility] 04/29/20 05:40 Sodium 142 mmol/L (136-145) 04/29/20 04:40 Corrected Sodium 144 mmol/L (136-145) 04/29/20 04:40 Potassium 3.9 mmol/L (3.5-5.1) 04/29/20 04:40 Chloride 104 mmol/L (98-107) 04/29/20 04:40 Carbon Dioxide 29.0 mmol/L (21-32) 04/29/20 04:40 BUN 23 mg/dL (7-18) H 04/29/20 04:40 Creatinine 1.14 mg/dL (0.70-1.30) 04/29/20 04:40 Est GFR (MDRD) Af Amer > 60 (>60) 04/29/20 04:40 Est GFR (MDRD) Non-Af > 60 (>60) 04/29/20 04:40 Glucose 204 mg/dL (65-99) H 04/29/20 04:40 Lactic Acid 1.3 mmol/L (0.4-2.0) 04/25/20 18:10 Calcium 9.4 mg/dL (8.5-10.1) 04/29/20 04:40 Corrected Calcium 10.4 mg/dL (8.5-10.1) H 04/29/20 04:40 Magnesium 2.4 mg/dL (1.7-2.9) 04/26/20 04:30 Ferritin 2046 ng/mL (26-388) H 04/29/20 04:40 Total Bilirubin 0.20 mg/dL (0.2-1.0) 04/29/20 04:40 AST 22 Units/L (15-37) 04/29/20 04:40 ALT 30 Units/L (12-78) 04/29/20 04:40 Alkaline Phosphatase 68 Units/L (46-116) 04/29/20 04:40 Lactate Dehydrogenase 288 Units/L (85-227) H 04/25/20 18:10 C-Reactive Protein 21.30 mg/L (0-3.0) H 04/29/20 04:40 Total Protein 7.2 g/dL (6.4-8.2) 04/29/20 04:40 Albumin 2.8 g/dL (3.4-5.0) L 04/29/20 04:40 Globulin 4.4 g/dL (2.5-4.5) 04/29/20 04:40 Albumin/Globulin Ratio 0.6 Ratio (1.1-2.1) L 04/29/20 04:40 SARS-CoV-2 (PCR) Positive (NEGATIVE) A 04/25/20 20:39 Blood Type A POSITIVE 04/26/20 12:10 - Plan (1) Pneumonia due to COVID-19 virus Status: Acute Plan: LEVAQUIN 750MG IV DAILY, DUONEBS QID, PULMICORT NEBS BID, MUCOMYST IN NEBS BID, AND TESSALON PERLES 200MG PO TID, REMDESIVIR 100MG IV DAILY, SOLU-MEDROL 80MG IV Q8H, LOVENOX 30MG SC BID, TRICOR 160MG PO DAILY, ZINC 220MG PO DAILY, KLONOPIN 0.5MG PO BID, SUBOXONE SL TID, AND THE POTASSIUM AND MAGNESIUM NE OTOCOLS. SUPPLEMENTAL OXYGEN (2) Acute hypoxemic respiratory failure due to COVID-19 Status: Acute
--- OUTSIDE RECORDS SUMMARY | 2020-04-29 16:48 | XMS | Continuity of Care Document ---
:1985 Author Name Br[facility]cher, System Address Unavailable Unavailable , Care Team Providers Name Role Phone No, PCP Unavailable Unavailable Buster Roberts Unavailable Nakul Unavailable Unavailable Unavailable Unavailable Problems Name Dates Details COVID-19 ruled out by laboratory testing (Z03.818, V71.83) Comments: Pt based on criteria will have COVID-19 testing. Discussed self quarantine until results obtained and symptoms resolved. Educated on supportive treatment. Status: Active Exposure to COVID-19 virus (Z20.828, V01.79) Comments: Pt based on criteria will have COVID-19 testing. Discussed self quarantine until results obtained and symptoms resolved. Educated on supportive treatment. Status: Active Exposure to COVID-19 virus (Z20.828, V01.79) Status: Active BOB (generalized anxiety disorder) (F41.1, 300.02) Comments: Will start on ativan prn. Discussed risk, benefits, and side effects of medication.F/u 1 month.Medications:Ativan 0.5mg BID prn-Has been on Klonopin in past, does not feel helps Status: Active Rhinosinusitis (J32.9, 473.9) Status: Ac tive Medications Name Dates Details LORazepam 0.5 MG Oral Tablet 1 (one) Tablet two times daily, as need ed for 30 days Quantity: 60 {Tablet} Refills: 0 Ordered:11-Feb-2020 Demetria Mota Start : 11-Feb-2020 Active Comments:Medication taken as needed. Azithromycin 250 MG Oral Tablet 1 (one) Tablet daily for 5 days Quantity: 6 {Tablet} Refills: 0 Ordered:11-Feb-2020 Buster Roberts Start : 11-Feb-2020 End : 16-Feb-2020 Inactive Comments:Take 2 tablets on Day 1 and 1 tablet daily after. No Known Historical Medications Allergies and Adverse Reactions Name Dates Details No Known Drug Allergies (Allergy) Onset: 11-Feb-2020 Status : Active Vital Signs Date Test Result Details [id number] Body temperature 97.6 f Comments: Meth od: Oral Heart Rate 82 /min Comments: Pattern: R egular Respiratory rate 18 /min Comments: Pattern: U nlabored O2 SAT 98 % Comments: Room air Systolic blood pressure 103 mm[Hg] Comments: Patien t Position: Sitting; Cuff Location: Left Arm; Cuff Size: Standard Diastolic blood pressure 65 mm[Hg] Comments: Patie nt Position: Sitting; Cuff Location: Left Arm; Cuff Size: Standard [id number] Body temperature 98.3 f Comments: Metho d: Oral Heart Rate 78 /min Comments: Pattern: R egular Respiratory rate 18 /min Comments: Pattern: U nlabored O2 SAT 100 % Comments: Room air Systolic blood pressure 109 mm[Hg] Comments: Patien t Position: Sitting; Cuff Location: Left Arm; Cuff Size: Standard Diastolic blood pressure 63 mm[Hg] Comments: Patie nt Position: Sitting; Cuff Location: Left Arm; Cuff Size: Standard Results Date Description Value Details No Result Information Available Plan of Care Name Dates Details Planned Observations [place] Virus/Covid-19 (U0001)Indication: Exposure to C OVID-19 virus On: [id number] Request [place] Virus/Covid-19 (U0001)Indication: Exposure to C OVID-19 virus On: [id number] Request [place] Virus/Covid-19 (U0001)Indication: COVID-19 ruled out by laboratory testing On: [id number] Request Encounters Review On: 29-Apr-2020 15:42 [facility] Nurse Visit On: 10-Apr-2020 12:12 Encounter Reason: covid test - Pt is her e today for a covid test. Pt has been exposed to covid. Pt has no symptoms. Pt was tested for covid on 04/10/20.Encounter Diagnosis: Exposure to COVID-19 virus End: 10-Apr-2020 12:20 [facility] Office Visit On: 11-Feb-2020 14:20 Encounter Reason: covid test - Pt is her e today for a covid test. Pt has a sore throat and said he has bad headaches when he wakes up. Pt has been exposed to covid. Pt was tested on 02/11/20.Encounter Diagnosis: Exposure to COVID-19 virus, End: 11-Feb-2020 14:59 BOB (generalized anxiety disorder), Rhinosinusitis [facility] Office Visit On: 04-Feb-2020 11:21 Encounter Reason: covid - Patient is her e to be tested for covid due to having symptoms. Reports headaches, diarrhea, fever. Encounter Diagnosis: COVID-19 ruled out by laboratory testing End: 04-Feb-2020 11:38 [facility] [employer] Treat[employer]bi Hayes; a guarantor
[2020-04-29] MEDS: REMDESIVIR (INVESTIGATIONAL DRUG GS-5734) 100 MG in NS 250 ML IV 250 ML IV SCH (22:00)
[2020-04-30 05:52] LABS: ABG BASE EXCESS 10.5 mmol/L (-2.0-2.0); ABG HCO3 35.7 mmol/L (22-26); FRACTIONATED INSPIRED OXYGEN 36
--- NOTE | 2020-04-30 05:54 | RAD ---
HISTORYSOBSTUDYCHEST, 1 [id number]/2020FINDINGSThe trachea is midline. The cardiac silhouette is stable. Interval increase in perihilar edema versus infiltrates. Bibasilar atelectasis/infiltrates slightly increased.. The bony thorax is unremarkable.IMPRESSIONSlight interval increase in perihilar and bibasilar infiltrate/edema.Electronically signed by: Lana Luis (Apr 30, 2020 05:54:26)
[2020-04-30 06:12] LABS: BASOPHILS % (AUTO) 0.2 % (0.2-1.0); HEMATOCRIT 39.4 % (42.0-54.0); HEMOGLOBIN 13.6 g/dL (13.5-18.0); LYMPHOCYTES # (AUTO) 0.5 X10^3/uL (1.3-2.9); MEAN CORPUSCULAR HGB CONC 34.5 g/dL (33.0-35.0); MEAN CORPUSCULAR VOLUME 89.8 fL (80.0-100.0); MEAN PLATELET VOLUME 6.9 fL (7.4-11.0); MONOCYTES # (AUTO) 0.4 x10^3/uL (0.3-0.8); MONOCYTES % (AUTO) 6.2 % (0.0-13.0); NEUTROPHILS % (AUTO) 86.6 % (42.0-75.0); PLATELET COUNT 413 X10^3/uL (150.0-450.0); RED BLOOD COUNT 4.38 X10^6/uL (4.7-6.0); RED CELL DISTRIBUTION WIDTH 13.7 % (11.6-16.5)
[2020-04-30] MEDS: SUBOXONE TAB SL SCH ×3 (06:33→21:07)
[2020-04-30] MEDS: TESSALON PERLES PO SCH ×3 (06:33→21:07)
[2020-04-30] MEDS: SOLU-Medrol 125 MG VIAL IVP SCH ×3 (06:33→21:07)
[2020-04-30 06:42] LABS: ALANINE AMINOTRANSFERASE 26 Units/L (12-78); ALBUMIN 2.9 g/dL (3.4-5.0); ALKALINE PHOSPHATASE 74 Units/L (46-116); ASPARTATE AMINO TRANSFERASE 14 Units/L (15-37); BLOOD UREA NITROGEN 27 mg/dL (7-18); CALCIUM 9.5 mg/dL (8.5-10.1); CARBON DIOXIDE 32.6 mmol/L (21-32); CHLORIDE 102 mmol/L (98-107); COR CA(FOR HYPOALB) 10.4 mg/dL (8.5-10.1); COR NA(FOR HYPERGLY) 146 mmol/L (136-145); CREATININE 1.19 mg/dL (0.70-1.30); SODIUM 143 mmol/L (136-145); TOTAL PROTEIN 7.5 g/dL (6.4-8.2); eGFR NON BLACK RACES > 60 (>60)
[2020-04-30 07:38] LABS: BAND NEUTROPHILS % 3 % (0-10); PLATELET MORPHOLOGY COMMENT NORMAL (NORMAL)
[2020-04-30] MEDS: TRICOR TAB 160 MG PO SCH (08:38)
[2020-04-30] MEDS: KLONOPIN TAB 0.5 MG PO SCH ×2 (08:39→20:06)
[2020-04-30] MEDS: VITAMIN D3 125 mcg (5,000 UNITS) PO SCH (08:39)
[2020-04-30] MEDS: LOVENOX INJ 30 MG SYR SC SCH ×2 (08:39→20:07)
[2020-04-30] MEDS: ZINC SULFATE PO SCH ×2 (08:39→20:07)
[2020-04-30] MEDS: LEVAQUIN PREMIX IV 750 MG 750 MG/150 ML BAG IV SCH (08:40)
[2020-04-30] MEDS: PULMICORT NEB TX 0.5 MG NEB SCH ×2 (08:50→21:21)
[2020-04-30] MEDS: DUONEB 0.5 MG/3 MG (3 mL) NEB SCH ×4 (08:50→21:21)
[2020-04-30] MEDS: MUCOMYST (RESPIRATORY USE ONLY) NEB SCH ×2 (08:50→21:21)
--- NOTE | 2020-04-30 12:16 | PCM.PROG ---
Progress Note - Progress Note for Day of Date of Exam: 04/30/20 - Subjective Subjective: IS BEING TREATED FOR PNEUMONIA DUE TO COVID-19, HYPOXIA, AND RESPIRATORY FAILURE. HE CONTINUES TO BE DEPENDENT ON OXYGEN TO MAINTAIN OXYGEN SATURATIONS. SATURATIONS CONTINUE TO REMAIN 89-93% ON NASAL CANNULA. HE IS CURRENTLY ON OXYGEN VIA NASAL CANNULA AT 4L/MIN. HE CONTINUES WITH COMPLAINTS OF SHORTNESS OF BREATH, COUGH, AND WEAKNESS THIS MORNING. COUGH IS NON- PRODUCTIVE. HE REPORTS SLIGHT IMPROVEMENT IN SYMPTOMS SINCE ONE DAY PRIOR. ON EXAMINATION, HE IS NOTED WITH SCATTERED WHEEZING TO AUSCULTATION. HIS VITALS THIS MORNING ARE: 97.7-55-20-89%NC-122/79. LABS WERE OBTAINED. ABNORMAL LAB VALUES INCLUDE THE FOLLOWING: RBC 4.38, HCT 39.4, CARBON DIOXIDE 32.6, BUN 27, GLUCOSE 208, FERRITIN 2182, AST 14, CRP 15.10, ALBUMIN 2.9, GLOBULIN 4.6. ABG REVEALED: PH 7.470, PC02 49, P02 56, HC03 35.7, 02 SAT 91, FI02 36. HE IS CURRENTLY RECEIVING REMDESIVIR 100MG IV DAILY, SOLU-MEDROL 80MG IV Q8H, LEVAQUIN 750MG IV DAILY, DUONEBS QID, PULMICORT NEBS BID, MUCOMYST IN NEBS BID, TESSALON PERLES 200MG PO TID, LOVENOX 30MG SC BID, TRICOR 160MG PO DAILY, ZINC 220MG PO DAILY, KLONOPIN 0.5MG PO BID, SUBOXONE SL TID, AND THE POTASSIUM AND MAGNESIUM PROTOCOLS. HE HAS RECEIVED ONE UNIT OF CONVALESCENT PLASMA AND WILL RECEIVE ANOTHER WHEN IT IS AVAILABLE. OTHERWISE, WILL CONTINUE WITH CURRENT PLAN OF CARE TODAY. WE PLAN TO FOLLOW UP WITH AM LABS, CHEST XRAY, ABG, AND CONTINUE TO MONIT OR. - Past Medical Family Social History Past Med/Fam/Surg Hx: No changes since H&P Allergies: Allergies amoxicillin Adverse Reaction (Verified 04/25/20 17:48) clavulanic acid [From Augmentin] Adverse Reaction (Verified 04/25/20 17:48) - Review of Systems ROS: No change since H&P - Vital Signs and I&O's Vital Signs: Temperature 97.7 F Pulse Rate [Left Brachial] 55 Pulse Rate 59 Respiratory Rate 20 Blood Pressure [Left Arm] 122/79 Blood Pressure 119/58 O2 Sat by Pulse Oximetry 92 Intake and Output: Intake & Output 04/28/20 04/29/20 04/30/20 05/01/20 11:59 11:59 11:59 11:59 Intake Total 2820 / 2820 2240 / 2240 3359 / 3359 Balance 2820 / 2820 2240 / 2240 3359 / 3359 - Physical Exam Oriented: Normal Eyes: Normal Ear: Normal Nose: Normal Throat: Normal Respiratory: Generalized, Diminished, Wheezes Cardiovascular: Normal : Normal Auscultation: Bowel Sounds: Normal Palpation: Normal Tenderness: Normal Skin: Normal Musculoskeletal: Normal Psychiatric: Normal Mood Description: Calm Affect: Normal Speech Pattern: Clear, Appropriate - Laboratory and Diagnostics Result Diagrams: 04/30/20 04:43 04/30/20 04:43 Labs: Laboratory WBC 7.0 X10^3/uL (3.6-10.0) 04/30/20 04:43 RBC 4.38 X10^6/uL (4.7-6.0) L 04/30/20 04:43 Hgb 13.6 g/dL (13.5-18.0) 04/30/20 04:43 Hct 39.4 % (42.0-54.0) L 04/30/20 04:43 MCV 89.8 fL (80.0-100.0) 04/30/20 04:43 MCH 31.0 pg (27.0-34.0) 04/30/20 04:43 MCHC 34.5 g/dL (33.0-35.0) 04/30/20 04:43 RDW 13.7 % (11.6-16.5) 04/30/20 04:43 Plt Count 413 X10^3/uL (150.0-450.0) 04/30/20 04:43 Plt Count Comment Adequate (ADEQUATE) 04/30/20 04:43 MPV 6.9 fL (7.4-11.0) L 04/30/20 04:43 Neut % (Auto) 86.6 % (42.0-75.0) H 04/30/20 04:43 Lymph % (Auto) 7.0 % (21.0-51.0) L 04/30/20 04:43 [place] % (Auto) 6.2 % (0.0-13.0) 04/30/20 04:43 Eos % (Auto) 0.0 % (0.9-2.9) L 04/30/20 04:43 Baso % (Auto) 0.2 % (0.2-1.0) 04/30/20 04:43 Neut # (Auto) 6.0 x10^3/uL (2.2-4.8) H 04/30/20 04:43 Lymph # (Auto) 0.5 X10^3/uL (1.3-2.9) L 04/30/20 04:43 [place] # (Auto) 0.4 x10^3/uL (0.3-0.8) 04/30/20 04:43 Eos # (Auto) 0.0 x10^3/uL (0.0-0.2) 04/30/20 04:43 Baso # (Auto) 0.0 X10^3/uL (0.0-0.1) 04/30/20 04:43 Absolute Nucleated RBC 0.0 /100WBC 04/30/20 04:43 Total Counted 100 04/30/20 04:43 Neutrophils % (Manual) 84 % (39-76) H 04/30/20 04:43 Band Neutrophils % 3 % (0-10) 04/30/20 04:43 Lymphocytes % (Manual) 12 % (13-43) L 04/30/20 04:43 Monocytes % (Manual) 1 % (4-9) L 04/30/20 04:43 Plt Morphology Comment Normal (NORMAL) 04/30/20 04:43 RBC Morphology Normal (NORMAL) 04/30/20 04:43 Sample Site Lb 04/30/20 05:46 ABG pH 7.470 (7.35-7.45) H 04/30/20 05:46 ABG pCO2 49.0 mmHg (35.0-45.0) H 04/30/20 05:46 ABG pO2 56.0 mmHg (80.0-100.0) L 04/30/20 05:46 ABG HCO3 35.7 mmol/L (22-26) H* 04/30/20 05:46 ABG O2 Saturation 91.0 % (90-100) 04/30/20 05:46 ABG Base Excess 10.5 mmol/L (-2.0-2.0) H 04/30/20 05:46 Guevara Test Na 04/30/20 05:46 A-a Gradient 139.0 mmHg 04/30/20 05:46 FiO2 36 04/30/20 05:46 Blood Gas Comments Pt мария [facility] 04/30/20 05:46 Sodium 143 mmol/L (136-145) 04/30/20 04:43 Corrected Sodium 146 mmol/L (136-145) H 04/30/20 04:43 Potassium 4.1 mmol/L (3.5-5.1) 04/30/20 04:43 Chloride 102 mmol/L (98-107) 04/30/20 04:43 Carbon Dioxide 32.6 mmol/L (21-32) H 04/30/20 04:43 BUN 27 mg/dL (7-18) H 04/30/20 04:43 Creatinine 1.19 mg/dL (0.70-1.30) 04/30/20 04:43 Est GFR (MDRD) Af Amer > 60 (>60) 04/30/20 04:43 Est GFR (MDRD) Non-Af > 60 (>60) 04/30/20 04:43 Glucose 208 mg/dL (65-99) H 04/30/20 04:43 Lactic Acid 1.3 mmol/L (0.4-2.0) 04/25/20 18:10 Calcium 9.5 mg/dL (8.5-10.1) 04/30/20 04:43 Corrected Calcium 10.4 mg/dL (8.5-10.1) H 04/30/20 04:43 Magnesium 2.4 mg/dL (1.7-2.9) 04/26/20 04:30 Ferritin 2182 ng/mL (26-388) H 04/30/20 04:43 Total Bilirubin 0.30 mg/dL (0.2-1.0) 04/30/20 04:43 AST 14 Units/L (15-37) L 04/30/20 04:43 ALT 26 Units/L (12-78) 04/30/20 04:43 Alkaline Phosphatase 74 Units/L (46-116) 04/30/20 04:43 Lactate Dehydrogenase 288 Units/L (85-227) H 04/25/20 18:10 C-Reactive Protein 15.10 mg/L (0-3.0) H 04/30/20 04:43 Total Protein 7.5 g/dL (6.4-8.2) 04/30/20 04:43 Albumin 2.9 g/dL (3.4-5.0) L 04/30/20 04:43 Globulin 4.6 g/dL (2.5-4.5) H 04/30/20 04:43 Albumin/Globulin Ratio 0.6 Ratio (1.1-2.1) L 04/30/20 04:43 SARS-CoV-2 (PCR) Positive (NEGATIVE) A 04/25/20 20:39 Blood Type A POSITIVE 04/26/20 12:10 - Plan (1) Pneumonia due to COVID-19 virus Status: Acute Plan: LEVAQUIN 750MG IV DAILY, DUONEBS QID, PULMICORT NEBS BID, MUCOMYST IN NEBS BID, AND TESSALON PERLES 200MG PO TID, REMDESIVIR 100MG IV DAILY, SOLU-MEDROL 80MG IV Q8H, LOVENOX 30MG SC BID, TRICOR 160MG PO DAILY, ZINC 220MG PO DAILY, KLONOPIN 0.5MG PO BID, SUBOXONE SL TID, AND THE POTASSIUM AND MAGNESIUM PROTOCOLS. SUPPLEMENTAL OXYGEN (2) Acute hypoxemic respiratory failure due to COVID-19 Status: Acute
[2020-04-30] MEDS: MAGIC MOUTHWASH MT SCH ×2 (18:00→20:07)
[2020-04-30] MEDS: REMDESIVIR (INVESTIGATIONAL DRUG GS-5734) 100 MG in NS 250 ML IV 250 ML IV SCH (22:58)
[2020-05-01 05:18] LABS: ABG BASE EXCESS 14.5 mmol/L (-2.0-2.0)
[2020-05-01 05:19] LABS: ABG ALLEN TEST POS; ABG HCO3 39.8 mmol/L (22-26)
[2020-05-01 05:25] LABS: BASOPHILS % (AUTO) 0.1 % (0.2-1.0); HEMOGLOBIN 13.2 g/dL (13.5-18.0); LYMPHOCYTES # (AUTO) 0.5 X10^3/uL (1.3-2.9); LYMPHOCYTES % (AUTO) 6.3 % (21.0-51.0); MEAN CORPUSCULAR HEMOGLOBIN 30.6 pg (27.0-34.0); MEAN CORPUSCULAR HGB CONC 33.8 g/dL (33.0-35.0); MEAN CORPUSCULAR VOLUME 90.8 fL (80.0-100.0); MEAN PLATELET VOLUME 7.1 fL (7.4-11.0); MONOCYTES # (AUTO) 0.6 x10^3/uL (0.3-0.8); MONOCYTES % (AUTO) 7.6 % (0.0-13.0); NEUTROPHILS # (AUTO) 6.9 x10^3/uL (2.2-4.8); PLATELET COUNT 392 X10^3/uL (150.0-450.0); RED CELL DISTRIBUTION WIDTH 13.7 % (11.6-16.5); WHITE BLOOD COUNT 8.1 X10^3/uL (3.6-10.0)
[2020-05-01 05:40] LABS: ALANINE AMINOTRANSFERASE 28 Units/L (12-78); ALBUMIN 2.7 g/dL (3.4-5.0); ALKALINE PHOSPHATASE 63 Units/L (46-116); ASPARTATE AMINO TRANSFERASE 16 Units/L (15-37); BLOOD UREA NITROGEN 30 mg/dL (7-18); CALCIUM 9.3 mg/dL (8.5-10.1); CARBON DIOXIDE 34.1 mmol/L (21-32); CHLORIDE 101 mmol/L (98-107); COR CA(FOR HYPOALB) 10.3 mg/dL (8.5-10.1); COR NA(FOR HYPERGLY) 143 mmol/L (136-145); CREATININE 1.07 mg/dL (0.70-1.30); SODIUM 141 mmol/L (136-145); eGFR NON BLACK RACES > 60 (>60)
[2020-05-01] MEDS: TESSALON PERLES PO SCH ×3 (05:54→22:30)
[2020-05-01] MEDS: SOLU-Medrol 125 MG VIAL IVP SCH ×3 (05:54→22:30)
--- NOTE | 2020-05-01 05:57 | RAD ---
HISTORYSOBSTUDYCHEST, 1 [id number]/01/2020FINDINGSThe trachea is midline. The cardiac silhouette is mildly enlarged with central pulmonary vascular congestion versus perihilar infiltrates. Patchy bibasilar opacities, similar to prior exam... The bony thorax is unremarkable.IMPRESSIONNo appreciable interval change.Electronically signed by: Lana Luis (May 01, 2020 05:57:34)
[2020-05-01 06:07] LABS: BAND NEUTROPHILS % 4 % (0-10); PLATELET MORPHOLOGY COMMENT NORMAL (NORMAL)
[2020-05-01] MEDS: SUBOXONE TAB SL SCH ×3 (08:26→22:30)
[2020-05-01] MEDS: KLONOPIN TAB 0.5 MG PO SCH ×2 (08:27→19:59)
[2020-05-01] MEDS: LOVENOX INJ 30 MG SYR SC SCH ×2 (08:28→20:00)
[2020-05-01] MEDS: LEVAQUIN PREMIX IV 750 MG 750 MG/150 ML BAG IV SCH (08:28)
[2020-05-01] MEDS: VITAMIN D3 125 mcg (5,000 UNITS) PO SCH (08:29)
[2020-05-01] MEDS: TRICOR TAB 160 MG PO SCH (08:29)
[2020-05-01] MEDS: MAGIC MOUTHWASH MT SCH ×4 (08:29→20:00)
[2020-05-01] MEDS: ZINC SULFATE PO SCH ×2 (08:30→20:01)
[2020-05-01] MEDS: PULMICORT NEB TX 0.5 MG NEB SCH ×2 (09:00→20:25)
[2020-05-01] MEDS: MUCOMYST (RESPIRATORY USE ONLY) NEB SCH ×2 (09:00→20:25)
[2020-05-01] MEDS: DUONEB 0.5 MG/3 MG (3 mL) NEB SCH ×4 (09:00→20:25)
--- NOTE | 2020-05-01 11:42 | PCM.PROG ---
Progress Note - Progress Note for Day of Date of Exam: 05/01/20 - Subjective Subjective: IS BEING TREATED FOR PNEUMONIA DUE TO COVID-19, HYPOXIA, AND RESPIRATORY FAILURE. HE CONTINUES TO BE DEPENDENT ON OXYGEN TO MAINTAIN OXYGEN SATURATIONS. SATURATIONS CONTINUE TO REMAIN 89-93% ON NASAL CANNULA. HE IS CURRENTLY ON OXYGEN VIA NASAL CANNULA AT 2L/MIN. HE HAS FINISHED A FIVE DAY COURSE OF REMDESIVIR. HE CONTINUES WITH COMPLAINTS OF SHORTNESS OF BREATH, COUGH, AND WEAKNESS THIS MORNING. COUGH IS NON-PRODUCTIVE. HE REPORTS SLIGHT IMPROVEMENT IN SYMPTOMS SINCE ONE DAY PRIOR. ON EXAMINATION, HE IS NOTED WITH SCATTERED WHEEZING TO AUSCULTATION. HIS VITALS THIS MORNING ARE: 98.0-61-18-91%NC-111/77. LABS WERE OBTAINED. ABNORMAL LAB VALUES INCLUDE THE FOLLOWING: RBC 4.30, HGB 13.2, HCT 39.0, CARBON DIOXIDE 34.1, BUN 30, GLUCOSE 187, FERRITIN 2001, CRP 9.20, ALBUMIN 2.7. ABG REVEALED: PH 7.500, PC02 51, P02 67, HC03 39.8, 02 SAT 95, BASE EXCESS 14.5, FI02 36. HE IS CURRENTLY RECEIVING SOLU-MEDROL 80MG IV Q8H, LEVAQUIN 750MG IV DAILY, DUONEBS QID, PULMICORT NEBS BID, MUCOMYST IN NEBS BID, TESSALON PERLES 200MG PO TID, LOVENOX 30MG SC BID, TRICOR 160MG PO DAILY, ZINC 220MG PO DAILY, KLONOPIN 0.5MG PO BID, SUBOXONE SL TID, AND THE POTASSIUM AND MAGNESIUM PROTOCOLS. HE HAS RECEIVED ONE UNIT OF CONVALESCENT PLASMA AND WILL RECEIVE ANOTHER WHEN IT IS AVAILABLE. OTHERWISE, WILL CONTINUE WITH CURRENT PLAN OF CARE TODAY. WE PLAN TO FOLLOW UP WITH AM LABS, CHEST XRAY, ABG, AND CONTINUE TO MONITOR. - Past Medical Family Social History Past Med/Fam/Surg Hx: No changes since H&P Allergies: Allergies amoxicillin Adverse Reaction (Verified 04/25/20 17:48) clavulanic acid [From Augmentin] Adverse Reaction (Verified 04/25/20 17:48) - Review of Systems ROS: No change since H&P - Vital Signs and I&O's Vital Signs: Temperature 98 F Pulse Rate [Left Brachial] 61 Pulse Rate 65 Respiratory Rate 18 Blood Pressure [Left Arm] 111/70 Blood Pressure 119/58 O2 Sat by Pulse Oximetry 91 Intake and Output: Intake & Output 04/28/20 04/29/20 04/30/20 05/01/20 11:59 11:59 11:59 11:59 Intake Total 2820 / 2820 2240 / 2240 3359 / 3359 1665 / 1665 Balance 2820 / 2820 2240 / 2240 3359 / 3359 1665 / 1665 - Physical Exam Oriented: Normal Eyes: Normal Ear: Normal Nose: Normal Throat: Normal Respiratory: Generalized, Diminished, Wheezes Cardiovascular: Normal : Normal Auscultation: Bowel Sounds: Normal Palpation: Normal Tenderness: Normal Skin: Normal Musculoskeletal: Normal Psychiatric: Normal Mood Description: Calm Affect: Normal Speech Pattern: Clear, Appropriate - Laboratory and Diagnostics Result Diagrams: 05/01/20 04:39 05/01/20 04:39 Labs: Laboratory WBC 8.1 X10^3/uL (3.6-10.0) 05/01/20 04:39 RBC 4.30 X10^6/uL (4.7-6.0) L 05/01/20 04:39 Hgb 13.2 g/dL (13.5-18.0) L 05/01/20 04:39 Hct 39.0 % (42.0-54.0) L 05/01/20 04:39 MCV 90.8 fL (80.0-100.0) 05/01/20 04:39 MCH 30.6 pg (27.0-34.0) 05/01/20 04:39 MCHC 33.8 g/dL (33.0-35.0) 05/01/20 04:39 RDW 13.7 % (11.6-16.5) 05/01/20 04:39 Plt Count 392 X10^3/uL (150.0-450.0) 05/01/20 04:39 Plt Count Comment Adequate (ADEQUATE) 05/01/20 04:39 MPV 7.1 fL (7.4-11.0) L 05/01/20 04:39 Neut % (Auto) 86.0 % (42.0-75.0) H 05/01/20 04:39 Lymph % (Auto) 6.3 % (21.0-51.0) L 05/01/20 04:39 [place] % (Auto) 7.6 % (0.0-13.0) 05/01/20 04:39 Eos % (Auto) 0.0 % (0.9-2.9) L 05/01/20 04:39 Baso % (Auto) 0.1 % (0.2-1.0) L 05/01/20 04:39 Neut # (Auto) 6.9 x10^3/uL (2.2-4.8) H 05/01/20 04:39 Lymph # (Auto) 0.5 X10^3/uL (1.3-2.9) L 05/01/20 04:39 [place] # (Auto) 0.6 x10^3/uL (0.3-0.8) 05/01/20 04:39 Eos # (Auto) 0.0 x10^3/uL (0.0-0.2) 05/01/20 04:39 Baso # (Auto) 0.0 X10^3/uL (0.0-0.1) 05/01/20 04:39 Absolute Nucleated RBC 0.2 /100WBC 05/01/20 04:39 Total Counted 100 05/01/20 04:39 Neutrophils % (Manual) 76 % (39-76) 05/01/20 04:39 Band Neutrophils % 4 % (0-10) 05/01/20 04:39 Lymphocytes % (Manual) 12 % (13-43) L 05/01/20 04:39 Monocytes % (Manual) 8 % (4-9) 05/01/20 04:39 Plt Morphology Comment Normal (NORMAL) 05/01/20 04:39 RBC Morphology Normal (NORMAL) 05/01/20 04:39 Sample Site Rr 05/01/20 05:00 ABG pH 7.500 (7.35-7.45) H 05/01/20 05:00 ABG pCO2 51.0 mmHg (35.0-45.0) H* 05/01/20 05:00 ABG pO2 67.0 mmHg (80.0-100.0) L 05/01/20 05:00 ABG HCO3 39.8 mmol/L (22-26) H* 05/01/20 05:00 ABG O2 Saturation 95.0 % (90-100) 05/01/20 05:00 ABG Base Excess 14.5 mmol/L (-2.0-2.0) H 05/01/20 05:00 Guevara Test Pos 05/01/20 05:00 A-a Gradient 126.0 mmHg 05/01/20 05:00 FiO2 36.0 05/01/20 05:00 Blood Gas Comments Luz well sw 05/01/20 05:00 Sodium 141 mmol/L (136-145) 05/01/20 04:39 Corrected Sodium 143 mmol/L (136-145) 05/01/20 04:39 Potassium 4.5 mmol/L (3.5-5.1) 05/01/20 04:39 Chloride 101 mmol/L (98-107) 05/01/20 04:39 Carbon Dioxide 34.1 mmol/L (21-32) H 05/01/20 04:39 BUN 30 mg/dL (7-18) H 05/01/20 04:39 Creatinine 1.07 mg/dL (0.70-1.30) 05/01/20 04:39 Est GFR (MDRD) Af Amer > 60 (>60) 05/01/20 04:39 Est GFR (MDRD) Non-Af > 60 (>60) 05/01/20 04:39 Glucose 187 mg/dL (65-99) H 05/01/20 04:39 Lactic Acid 1.3 mmol/L (0.4-2.0) 04/25/20 18:10 Calcium 9.3 mg/dL (8.5-10.1) 05/01/20 04:39 Corrected Calcium 10.3 mg/dL (8.5-10.1) H 05/01/20 04:39 Magnesium 2.4 mg/dL (1.7-2.9) 04/26/20 04:30 Ferritin 2001 ng/mL (26-388) H 05/01/20 04:39 Total Bilirubin 0.30 mg/dL (0.2-1.0) 05/01/20 04:39 AST 16 Units/L (15-37) 05/01/20 04:39 ALT 28 Units/L (12-78) 05/01/20 04:39 Alkaline Phosphatase 63 Units/L (46-116) 05/01/20 04:39 Lactate Dehydrogenase 288 Units/L (85-227) H 04/25/20 18:10 C-Reactive Protein 9.20 mg/L (0-3.0) H 05/01/20 04:39 Total Protein 7.0 g/dL (6.4-8.2) 05/01/20 04:39 Albumin 2.7 g/dL (3.4-5.0) L 05/01/20 04:39 Globulin 4.3 g/dL (2.5-4.5) 05/01/20 04:39 Albumin/Globulin Ratio 0.6 Ratio (1.1-2.1) L 05/01/20 04:39 SARS-CoV-2 (PCR) Positive (NEGATIVE) A 04/25/20 20:39 Blood Type A POSITIVE 04/26/20 12:10 - Plan (1) Pneumonia due to COVID-19 virus Status: Acute Plan: LEVAQUIN 750MG IV DAILY, DUONEBS QID, PULMICORT NEBS BID, MUCOMYST IN NEBS BID, AND TESSALON PERLES 200MG PO TID, SOLU-MEDROL 80MG IV Q8H, LOVENOX 30MG SC BID, TRICOR 160MG PO DAILY, ZINC 220MG PO DAILY, KLONOPIN 0.5MG PO BID, SUBOXONE SL TID, AND THE POTASSIUM AND MAGNESIUM PROTOCOLS. SUPPLEMENTAL OXYGEN (2) Acute hypoxemic respiratory failure due to COVID-19 Status: Acute
[2020-05-02 05:46] LABS: ABG BASE EXCESS 15.5 mmol/L (-2.0-2.0)
[2020-05-02 05:48] LABS: ABG HCO3 40.7 mmol/L (22-26)
[2020-05-02] MEDS: SUBOXONE TAB SL SCH ×3 (06:00→22:00)
[2020-05-02] MEDS: SOLU-Medrol 125 MG VIAL IVP SCH ×3 (06:00→22:00)
[2020-05-02] MEDS: TESSALON PERLES PO SCH ×3 (06:00→22:00)
[2020-05-02 06:41] LABS: ALANINE AMINOTRANSFERASE 28 Units/L (12-78); ALBUMIN 2.9 g/dL (3.4-5.0); ALKALINE PHOSPHATASE 64 Units/L (46-116); ASPARTATE AMINO TRANSFERASE 15 Units/L (15-37); BLOOD UREA NITROGEN 30 mg/dL (7-18); CALCIUM 9.5 mg/dL (8.5-10.1); CARBON DIOXIDE 35.8 mmol/L (21-32); CHLORIDE 99 mmol/L (98-107); COR CA(FOR HYPOALB) 10.4 mg/dL (8.5-10.1); COR NA(FOR HYPERGLY) 143 mmol/L (136-145); CREATININE 1.12 mg/dL (0.70-1.30); SODIUM 140 mmol/L (136-145); TOTAL PROTEIN 7.1 g/dL (6.4-8.2); eGFR NON BLACK RACES > 60 (>60)
--- NOTE | 2020-05-02 06:51 | RAD ---
HISTORYSOBSTUDYAP [id number] size is now normal. There is a persistent left lower lobe infiltrate without evidence for mass formation, extrapulmonary air or pleural fluid. There is interval improvement in aeration of the right lung.IMPRESSIONPersistent left lower lobe infiltrate consistent with pneumonia. No new abnormality is demonstrated.Electronically signed by: DEB DAVIS (May 02, 2020 06:50:57)
[2020-05-02 06:54] LABS: BASOPHILS % (AUTO) 0.2 % (0.2-1.0); HEMATOCRIT 39.7 % (42.0-54.0); HEMOGLOBIN 13.9 g/dL (13.5-18.0); LYMPHOCYTES # (AUTO) 0.4 X10^3/uL (1.3-2.9); LYMPHOCYTES % (AUTO) 4.8 % (21.0-51.0); MEAN CORPUSCULAR HEMOGLOBIN 31.2 pg (27.0-34.0); MEAN CORPUSCULAR HGB CONC 35.1 g/dL (33.0-35.0); MEAN CORPUSCULAR VOLUME 89.1 fL (80.0-100.0); MONOCYTES # (AUTO) 0.3 x10^3/uL (0.3-0.8); MONOCYTES % (AUTO) 3.3 % (0.0-13.0); NEUTROPHILS # (AUTO) 7.6 x10^3/uL (2.2-4.8); NEUTROPHILS % (AUTO) 91.7 % (42.0-75.0); PLATELET COUNT 450 X10^3/uL (150.0-450.0); RED BLOOD COUNT 4.45 X10^6/uL (4.7-6.0); RED CELL DISTRIBUTION WIDTH 13.6 % (11.6-16.5); WHITE BLOOD COUNT 8.2 X10^3/uL (3.6-10.0)
[2020-05-02 07:30] LABS: BAND NEUTROPHILS % 2 % (0-10); PLATELET MORPHOLOGY COMMENT NORMAL (NORMAL)
[2020-05-02] MEDS: DUONEB 0.5 MG/3 MG (3 mL) NEB SCH ×4 (08:50→21:14)
[2020-05-02] MEDS: MUCOMYST (RESPIRATORY USE ONLY) NEB SCH ×2 (08:50→21:14)
[2020-05-02] MEDS: PULMICORT NEB TX 0.5 MG NEB SCH ×2 (08:50→21:14)
[2020-05-02] MEDS: LEVAQUIN PREMIX IV 750 MG 750 MG/150 ML BAG IV SCH (09:00)
[2020-05-02] MEDS: KLONOPIN TAB 0.5 MG PO SCH ×2 (09:12→21:20)
[2020-05-02] MEDS: TRICOR TAB 160 MG PO SCH (09:13)
[2020-05-02] MEDS: VITAMIN D3 125 mcg (5,000 UNITS) PO SCH (09:13)
[2020-05-02] MEDS: ZINC SULFATE PO SCH ×2 (09:13→21:21)
[2020-05-02] MEDS: MAGIC MOUTHWASH MT SCH ×4 (09:14→21:21)
[2020-05-02] MEDS: LOVENOX INJ 30 MG SYR SC SCH ×2 (09:14→21:20)
--- NOTE | 2020-05-02 14:05 | PCM.PROG ---
Progress Note Progress Note for Day of Date of Exam: 05/02/20 Subjective Subjective: Patient seen at bedside, no acute events overnight. Patient states he feels better. He has not been out of bed much and is requiring 4L O2 via NC. Patient has been afebrile. He refused 2nd course of plasma therapy last night and said he doesn't need it since he feels better. He still has mild dry cough. Patient is adamant about going home and states he has to go to his grand- father's on Monday. His home O2 was delivered yesterday. AB.51/51/72/40 CRP: 6.3 CXR: LLL infiltrated present, slight improvement in aeration on the right side Plan: will ask RT to walk patient and assess home O2 needs, advised patient to ambulate as tolerated. Patient has been mostly staying in bed. Continue Solumedrol, Levaquin. He completed course of Remdesivir. He received one plasma. Monitor AM labs, Titrate O2 as needed. Continue duonebs and pulmicort, continue IS. Past Medical Family Social History Past Med/Fam/Surg Hx: No changes since H&P Allergies: Allergies amoxicillin Adverse Reaction (Verified 04/25/20 17:48) clavulanic acid [From Augmentin] Adverse Reaction (Verified 04/25/20 17:48) Review of Systems ROS: No change since H&P Vital Signs and I&O's Vital Signs: Temperature 97.7 F Pulse Rate [Left Brachial] 60 Pulse Rate 54 Respiratory Rate 20 Blood Pressure [Left Arm] 108/59 Blood Pressure 119/58 O2 Sat by Pulse Oximetry 96 Intake and Output: Intake & Output 04/29/20 04/30/20 05/01/20 05/02/20 23:59 23:59 23:59 23:59 Intake Total 2529 / 2529 2785 / 2785 1741 / 1741 277 / 277 Balance 2529 / 2529 2785 / 2785 1741 / 1741 277 / 277 Physical Exam Oriented: Normal Eyes: Normal Ear: Normal Nose: Normal Throat: Normal Respiratory: Generalized, Diminished and Wheezes Cardiovascular: Normal Auscultation: Bowel Sounds: Normal Tenderness: Normal Skin: Normal Musculoskeletal: Normal Psychiatric: Normal Mood Description: Calm Affect: Normal Speech Pattern: Clear and Appropriate Laboratory and Diagnostics Result Diagrams: 05/02/20 04:15 10/03/20 04:15 Labs: Laboratory WBC 8.2 X10^3/uL (3.6-10.0) 05/02/20 04:15 RBC 4.45 X10^6/uL (4.7-6.0) L 05/02/20 04:15 Hgb 13.9 g/dL (13.5-18.0) 05/02/20 04:15 Hct 39.7 % (42.0-54.0) L 05/02/20 04:15 MCV 89.1 fL (80.0-100.0) 05/02/20 04:15 MCH 31.2 pg (27.0-34.0) 05/02/20 04:15 MCHC 35.1 g/dL (33.0-35.0) H 05/02/20 04:15 RDW 13.6 % (11.6-16.5) 05/02/20 04:15 Plt Count 450 X10^3/uL (150.0-450.0) 05/02/20 04:15 Plt Count Comment Adequate (ADEQUATE) 05/02/20 04:15 MPV 7.0 fL (7.4-11.0) L 05/02/20 04:15 Neut % (Auto) 91.7 % (42.0-75.0) H 05/02/20 04:15 Lymph % (Auto) 4.8 % (21.0-51.0) L 05/02/20 04:15 [place] % (Auto) 3.3 % (0.0-13.0) 05/02/20 04:15 Eos % (Auto) 0.0 % (0.9-2.9) L 05/02/20 04:15 Baso % (Auto) 0.2 % (0.2-1.0) 05/02/20 04:15 Neut # (Auto) 7.6 x10^3/uL (2.2-4.8) H 05/02/20 04:15 Lymph # (Auto) 0.4 X10^3/uL (1.3-2.9) L 05/02/20 04:15 [place] # (Auto) 0.3 x10^3/uL (0.3-0.8) 05/02/20 04:15 Eos # (Auto) 0.0 x10^3/uL (0.0-0.2) 05/02/20 04:15 Baso # (Auto) 0.0 X10^3/uL (0.0-0.1) 05/02/20 04:15 Absolute Nucleated RBC 0.2 /100WBC 05/02/20 04:15 Total Counted 100 05/02/20 04:15 Neutrophils % (Manual) 85 % (39-76) H 05/02/20 04:15 Band Neutrophils % 2 % (0-10) 05/02/20 04:15 Lymphocytes % (Manual) 8 % (13-43) L 05/02/20 04:15 Monocytes % (Manual) 5 % (4-9) 05/02/20 04:15 Plt Morphology Comment Normal (NORMAL) 05/02/20 04:15 RBC Morphology Normal (NORMAL) 05/02/20 04:15 Sample Site Lb 05/02/20 05:40 ABG pH 7.510 (7.35-7.45) H 05/02/20 05:40 ABG pCO2 51.0 mmHg (35.0-45.0) H* 05/02/20 05:40 ABG pO2 72.0 mmHg (80.0-100.0) L 05/02/20 05:40 ABG HCO3 40.7 mmol/L (22-26) H* 05/02/20 05:40 ABG O2 Saturation 96.0 % (90-100) 05/02/20 05:40 ABG Base Excess 15.5 mmol/L (-2.0-2.0) H 05/02/20 05:40 Guevara Test Na 05/02/20 05:40 A-a Gradient 121.0 mmHg 05/02/20 05:40 FiO2 36.0 05/02/20 05:40 Blood Gas Comments Pt мария well. cdn 05/02/20 05:40 Sodium 140 mmol/L (136-145) 05/02/20 04:15 Corrected Sodium 143 mmol/L (136-145) 05/02/20 04:15 Potassium 4.4 mmol/L (3.5-5.1) 05/02/20 04:15 Chloride 99 mmol/L (98-107) 05/02/20 04:15 Carbon Dioxide 35.8 mmol/L (21-32) H 05/02/20 04:15 BUN 30 mg/dL (7-18) H 05/02/20 04:15 Creatinine 1.12 mg/dL (0.70-1.30) 05/02/20 04:15 Est GFR (MDRD) Af Amer > 60 (>60) 05/02/20 04:15 Est GFR (MDRD) Non-Af > 60 (>60) 05/02/20 04:15 Glucose 210 mg/dL (65-99) H 05/02/20 04:15 Lactic Acid 1.3 mmol/L (0.4-2.0) 04/25/20 18:10 Calcium 9.5 mg/dL (8.5-10.1) 05/02/20 04:15 Corrected Calcium 10.4 mg/dL (8.5-10.1) H 05/02/20 04:15 Magnesium 2.4 mg/dL (1.7-2.9) 04/26/20 04:30 Ferritin 1824 ng/mL (26-388) H 05/02/20 04:15 Total Bilirubin 0.40 mg/dL (0.2-1.0) 05/02/20 04:15 AST 15 Units/L (15-37) 05/02/20 04:15 ALT 28 Units/L (12-78) 05/02/20 04:15 Alkaline Phosphatase 64 Units/L (46-116) 05/02/20 04:15 Lactate Dehydrogenase 288 Units/L (85-227) H 04/25/20 18:10 C-Reactive Protein 6.30 mg/L (0-3.0) H 05/02/20 04:15 Total Protein 7.1 g/dL (6.4-8.2) 05/02/20 04:15 Albumin 2.9 g/dL (3.4-5.0) L 05/02/20 04:15 Globulin 4.2 g/dL (2.5-4.5) 05/02/20 04:15 Albumin/Globulin Ratio 0.7 Ratio (1.1-2.1) L 05/02/20 04:15 SARS-CoV-2 (PCR) Positive (NEGATIVE) A 04/25/20 20:39 Blood Type A POSITIVE 04/26/20 12:10 Plan (1) Pneumonia due to COVID-19 virus: Status: Acute Plan: LEVAQUIN 750MG IV DAILY, DUONEBS QID, PULMICORT NEBS BID, MUCOMYST IN NEBS BID, AND TESSALON PERLES 200MG PO TID, SOLU-MEDROL 80MG IV Q8H, LOVENOX 30MG SC BID, TRICOR 160MG PO DAILY, ZINC 220MG PO DAILY, KLONOPIN 0.5MG PO BID, SUBOXONE SL TID, AND THE POTASSIUM AND MAGNESIUM PROTOCOLS. SUPPLEMENTAL OXYGEN (2) Acute hypoxemic respiratory failure due to COVID-19: Status: Acute
[2020-05-03 05:08] LABS: BASOPHILS % (AUTO) 0.2 % (0.2-1.0); HEMATOCRIT 41.9 % (42.0-54.0); HEMOGLOBIN 14.4 g/dL (13.5-18.0); LYMPHOCYTES # (AUTO) 0.3 X10^3/uL (1.3-2.9); LYMPHOCYTES % (AUTO) 3.3 % (21.0-51.0); MEAN CORPUSCULAR HGB CONC 34.3 g/dL (33.0-35.0); MEAN CORPUSCULAR VOLUME 90.3 fL (80.0-100.0); MEAN PLATELET VOLUME 6.8 fL (7.4-11.0); MONOCYTES # (AUTO) 0.3 x10^3/uL (0.3-0.8); MONOCYTES % (AUTO) 3.8 % (0.0-13.0); NEUTROPHILS # (AUTO) 8.5 x10^3/uL (2.2-4.8); NEUTROPHILS % (AUTO) 92.7 % (42.0-75.0); PLATELET COUNT 486 X10^3/uL (150.0-450.0); RED BLOOD COUNT 4.64 X10^6/uL (4.7-6.0); RED CELL DISTRIBUTION WIDTH 13.4 % (11.6-16.5); WHITE BLOOD COUNT 9.2 X10^3/uL (3.6-10.0)
[2020-05-03 05:18] LABS: BLOOD UREA NITROGEN 34 mg/dL (7-18); CALCIUM 9.7 mg/dL (8.5-10.1); CARBON DIOXIDE 35.6 mmol/L (21-32); CHLORIDE 97 mmol/L (98-107); COR NA(FOR HYPERGLY) 141 mmol/L (136-145); CREATININE 1.15 mg/dL (0.70-1.30); SODIUM 138 mmol/L (136-145); eGFR NON BLACK RACES > 60 (>60)
[2020-05-03] MEDS: SOLU-Medrol 125 MG VIAL IVP SCH (06:17)
[2020-05-03] MEDS: SUBOXONE TAB SL SCH (06:17)
[2020-05-03] MEDS: TESSALON PERLES PO SCH (06:18)
[2020-05-03 07:08] LABS: PLATELET MORPHOLOGY COMMENT NORMAL (NORMAL)
[2020-05-03] MEDS: DUONEB 0.5 MG/3 MG (3 mL) NEB SCH (08:45)
[2020-05-03] MEDS: MUCOMYST (RESPIRATORY USE ONLY) NEB SCH (08:45)
[2020-05-03] MEDS: PULMICORT NEB TX 0.5 MG NEB SCH (08:45)
[2020-05-03] MEDS ORDERED: PEPCID TAB 20 MG PO SCH (10:20)
[2020-05-03] MEDS: TRICOR TAB 160 MG PO SCH (10:51)
[2020-05-03] MEDS: KLONOPIN TAB 0.5 MG PO SCH (10:51)
[2020-05-03] MEDS: VITAMIN D3 125 mcg (5,000 UNITS) PO SCH (10:52)
[2020-05-03 10:55] VITALS: BP 129/74
--- NOTE | 2020-05-03 11:01 | W.DIS.FURT ---
Summary of Discharge Discharge Summary of Date Date of Exam: 05/03/20 Admission Date Date of Admission: 04/26/20 Admission Diagnosis Hospital Course: Mr. Hayes is a 34y/o white male who presented to the [facility] emergency room complaining of subjective fevers, cough, congestion, and progressive shortness of breath for the past 4-5 days. The patient states that his grandmother, , and daughter are all COVID-19 positive. The patient states that he was tested for COVID-19 several weeks ago at which time he was negative. Workup in the emergency room revealed bilateral infiltrates on chest x-ray suggestive of COVID-19. The patient was noted to be mildly hypoxic at the time of admission. The patient was subsequently admitted for further workup. Patient was found to be COVID-positive. He was admitted with COVID protocol and started on IV abx, steroids, Remdesivir and supplemental O2 as needed. He also received plasma therapy. Patient's labs were monitored daily and electrolytes were replaced as needed. Patient remained on nasal canula during his entire admission. PT/OT were also consulted. Patient was stable on 2L NC at rest and exertion. Home O2 was set up and patient was stable for discharge. He will follow up with PCP as scheduled. Vital Signs: Vital Signs (72 hours) 04/30/20 12:00 04/30/20 12:15 04/30/20 16:00 Temperature 98.2 F 97.9 F Pulse Rate 93 H Pulse Rate [Left Brachial] 74 65 Respiratory Rate 18 18 Blood Pressure [Left Arm] 132/86 139/96 O2 Sat by Pulse Oximetry 92 L 91 L 93 L 04/30/20 17:35 04/30/20 20:00 04/30/20 21:21 Temperature 97.5 F L Pulse Rate 67 65 Pulse Rate [Left Brachial] 81 Respiratory Rate 18 Blood Pressure [Left Arm] 118/65 O2 Sat by Pulse Oximetry 93 L 88 L 94 L 05/01/20 00:00 05/01/20 04:00 05/01/20 07:00 Temperature 98.0 F 98.1 F Pulse Rate Pulse Rate [Left Brachial] 86 80 Respiratory Rate 18 20 20 Blood Pressure [Left Arm] 122/69 116/66 O2 Sat by Pulse Oximetry 90 L 90 L 05/01/20 08:00 05/01/20 09:00 05/01/20 12:00 Temperature 98 F 98 F Pulse Rate 78 Pulse Rate [Left Brachial] 61 77 Respiratory Rate 18 20 Blood Pressure [Left Arm] 111/70 109/56 O2 Sat by Pulse Oximetry 91 L 95 92 L 05/01/20 12:30 05/01/20 16:00 05/01/20 17:15 Temperature 97.9 F Pulse Rate 84 64 Pulse Rate [Left Brachial] 86 Respiratory Rate 22 Blood Pressure [Left Arm] 111/66 O2 Sat by Pulse Oximetry 89 L 96 94 L 05/01/20 20:00 05/01/20 20:25 05/02/20 00:00 Temperature 98.2 F 98.3 F Pulse Rate Pulse Rate [Left Brachial] 85 88 Respiratory Rate 20 18 Blood Pressure [Left Arm] 101/51 110/64 O2 Sat by Pulse Oximetry 93 L 93 L 93 L 05/02/20 04:00 05/02/20 08:00 05/02/20 08:50 Temperature 97.8 F 97.7 F Pulse Rate 54 L Pulse Rate [Left Brachial] 76 60 Respiratory Rate 20 20 Blood Pressure [Left Arm] 102/67 108/59 O2 Sat by Pulse Oximetry 93 L 92 L 96 05/02/20 12:00 05/02/20 12:35 05/02/20 16:00 Temperature 98.3 F 98.7 F Pulse Rate 73 Pulse Rate [Left Brachial] 73 84 Respiratory Rate 20 20 Blood Pressure [Left Arm] 124/61 96/60 O2 Sat by Pulse Oximetry 92 L 93 L 96 05/02/20 16:55 05/02/20 20:00 05/02/20 21:14 Temperature 98.2 F Pulse Rate 85 70 Pulse Rate [Left Brachial] 72 Respiratory Rate 18 Blood Pressure [Left Arm] 104/70 O2 Sat by Pulse Oximetry 95 94 L 96 05/03/20 00:00 05/03/20 04:00 05/03/20 08:00 Temperature 98.2 F 97.9 F 98.8 F Pulse Rate Pulse Rate [Left Brachial] 68 80 76 Respiratory Rate 20 18 20 Blood Pressure [Left Arm] 110/69 98/66 129/74 O2 Sat by Pulse Oximetry 94 L 94 L 96 05/03/20 08:45 Temperature Pulse Rate 77 Pulse Rate [Left Brachial] Respiratory Rate Blood Pressure [Left Arm] O2 Sat by Pulse Oximetry 96 Labs: Laboratory Last Values WBC 9.2 X10^3/uL (3.6-10.0) 05/03/20 04:20 RBC 4.64 X10^6/uL (4.7-6.0) L 05/03/20 04:20 Hgb 14.4 g/dL (13.5-18.0) 05/03/20 04:20 Hct 41.9 % (42.0-54.0) L 05/03/20 04:20 MCV 90.3 fL (80.0-100.0) 05/03/20 04:20 MCH 31.0 pg (27.0-34.0) 05/03/20 04:20 MCHC 34.3 g/dL (33.0-35.0) 05/03/20 04:20 RDW 13.4 % (11.6-16.5) 05/03/20 04:20 Plt Count 486 X10^3/uL (150.0-450.0) H 05/03/20 04:20 Plt Count Comment Increased (ADEQUATE) 05/03/20 04:20 MPV 6.8 fL (7.4-11.0) L 05/03/20 04:20 Neut % (Auto) 92.7 % (42.0-75.0) H 05/03/20 04:20 Lymph % (Auto) 3.3 % (21.0-51.0) L 05/03/20 04:20 [place] % (Auto) 3.8 % (0.0-13.0) 05/03/20 04:20 Eos % (Auto) 0.0 % (0.9-2.9) L 05/03/20 04:20 Baso % (Auto) 0.2 % (0.2-1.0) 05/03/20 04:20 Neut # (Auto) 8.5 x10^3/uL (2.2-4.8) H 05/03/20 04:20 Lymph # (Auto) 0.3 X10^3/uL (1.3-2.9) L 05/03/20 04:20 [place] # (Auto) 0.3 x10^3/uL (0.3-0.8) 05/03/20 04:20 Eos # (Auto) 0.0 x10^3/uL (0.0-0.2) 05/03/20 04:20 Baso # (Auto) 0.0 X10^3/uL (0.0-0.1) 05/03/20 04:20 Absolute Nucleated RBC 0.0 /100WBC 05/03/20 04:20 Total Counted 100 05/03/20 04:20 Neutrophils % (Manual) 94 % (39-76) H 05/03/20 04:20 Band Neutrophils % 2 % (0-10) 05/02/20 04:15 Lymphocytes % (Manual) 2 % (13-43) L 05/03/20 04:20 Monocytes % (Manual) 4 % (4-9) 05/03/20 04:20 Plt Morphology Comment Normal (NORMAL) 05/03/20 04:20 RBC Morphology Normal (NORMAL) 05/03/20 04:20 Sample Site Lb 05/02/20 05:40 ABG pH 7.510 (7.35-7.45) H 05/02/20 05:40 ABG pCO2 51.0 mmHg (35.0-45.0) H* 05/02/20 05:40 ABG pO2 72.0 mmHg (80.0-100.0) L 05/02/20 05:40 ABG HCO3 40.7 mmol/L (22-26) H* 05/02/20 05:40 ABG O2 Saturation 96.0 % (90-100) 05/02/20 05:40 ABG Base Excess 15.5 mmol/L (-2.0-2.0) H 05/02/20 05:40 Guevara Test Na 05/02/20 05:40 A-a Gradient 121.0 mmHg 05/02/20 05:40 FiO2 36.0 05/02/20 05:40 Blood Gas Comments Pt мария well. cdn 05/02/20 05:40 Sodium 138 mmol/L (136-145) 05/03/20 04:20 Corrected Sodium 141 mmol/L (136-145) 05/03/20 04:20 Potassium 4.5 mmol/L (3.5-5.1) 05/03/20 04:20 Chloride 97 mmol/L (98-107) L 05/03/20 04:20 Carbon Dioxide 35.6 mmol/L (21-32) H 05/03/20 04:20 BUN 34 mg/dL (7-18) H 05/03/20 04:20 Creatinine 1.15 mg/dL (0.70-1.30) 05/03/20 04:20 Est GFR (MDRD) Af Amer > 60 (>60) 05/03/20 04:20 Est GFR (MDRD) Non-Af > 60 (>60) 05/03/20 04:20 Glucose 229 mg/dL (65-99) H 05/03/20 04:20 Lactic Acid 1.3 mmol/L (0.4-2.0) 04/25/20 18:10 Calcium 9.7 mg/dL (8.5-10.1) 05/03/20 04:20 Corrected Calcium 10.4 mg/dL (8.5-10.1) H 05/02/20 04:15 Magnesium 2.4 mg/dL (1.7-2.9) 04/26/20 04:30 Ferritin 1824 ng/mL (26-388) H 05/02/20 04:15 Total Bilirubin 0.40 mg/dL (0.2-1.0) 05/02/20 04:15 AST 15 Units/L (15-37) 05/02/20 04:15 ALT 28 Units/L (12-78) 05/02/20 04:15 Alkaline Phosphatase 64 Units/L (46-116) 05/02/20 04:15 Lactate Dehydrogenase 288 Units/L (85-227) H 04/25/20 18:10 C-Reactive Protein 6.30 mg/L (0-3.0) H 05/02/20 04:15 Total Protein 7.1 g/dL (6.4-8.2) 05/02/20 04:15 Albumin 2.9 g/dL (3.4-5.0) L 05/02/20 04:15 Globulin 4.2 g/dL (2.5-4.5) 05/02/20 04:15 Albumin/Globulin Ratio 0.7 Ratio (1.1-2.1) L 05/02/20 04:15 SARS-CoV-2 (PCR) Positive (NEGATIVE) A 04/25/20 20:39 Blood Type A POSITIVE 04/26/20 12:10 Reason For Visit: COVID 19 CAP HYPOXEMIC RESP FAILURE Discharge Date Discharge Date: 05/03/20 Discharge Diagnosis All Active Problems (Updated 04/30/20 @ 10:39 by Eva Rashid) BOB (generalized anxiety disorder) (Acute) Exposure to COVID-19 virus (Acute) Anxiety (Chronic) Community acquired bacterial pneumonia (Acute) COVID-19 (Acute) Acute hypoxemic respiratory failure due to COVID-19 (Acute) Pneumonia due to COVID-19 virus (Acute) Plan of Treatment: Continue with present treatment and follow up plan. Pt is to keep follow up appointment as instructed and take medications as ordered. Discharge Medications Discharge Medications: amoxicillin Adverse Reaction (Verified 04/25/20 17:48) clavulanic acid [From Augmentin] Adverse Reaction (Verified 04/25/20 17:48) CONTINUE taking the following medications buprenorphine-naloxone 1 tab SUBLINGUAL TID 04/25/20 [History] clonazepam [Klonopin] 1 mg PO BID 04/25/20 [History] lorazepam 0.5 mg PO BID PRN 04/29/20 [History] New Prescriptions apixaban [Eliquis] 2.5 mg PO BID #60 tab 04/30/20 [Rx] benzonatate [Tessalon Perles] 200 mg PO TID #42 cap 04/30/20 [Rx] dextromethorphan-guaifenesin [Mucinex DM] 1 tab PO Q12H #20 tab 04/30/20 [Rx] ipratropium-albuterol 1 neb NEB TID #90 each 04/30/20 [Rx] levofloxacin [Levaquin] 750 mg PO QDAY #10 tab 04/30/20 [Rx] pantoprazole 40 mg PO BID #60 tab 04/30/20 [Rx] prednisone 10 mg PO BID #84 tab 04/30/20 [Rx] Follow up and Referral Follow Up: 1 Week (PCP) Discharge Disposition Discharge Disposition: Home S Discharge Condition: Stable
[2020-05-03] MEDS: ZINC SULFATE PO SCH (11:14)
[2020-05-03] MEDS: LEVAQUIN PREMIX IV 750 MG 750 MG/150 ML BAG IV SCH (11:32)
[2020-05-03] MEDS: LOVENOX INJ 30 MG SYR SC SCH (11:32)
[2020-05-03] MEDS: MAGIC MOUTHWASH MT SCH (11:33)
== END 2020-05-03 11:45 | disposition home or self-care (01) | DRG 177 ==
LOC: ER 17:40 → MED/SURG 21:47
PROVIDERS: ADMIT Internal Medicine; ATTEND Internal Medicine